=== PATIENT | male | born 1975 | race American Indian/Alaskan Native ===

== ENCOUNTER 2016-05-01 08:37 | Emergency (ER) | payer OTHER ==
[2016-05-01 08:49] VITALS: TEMP 98; BMI 33.5
--- NOTE | 2016-05-01 09:41 | PDOC ---
History of Present Illness - General History Source: Patient Exam Limitations: No Limitations - History of Present Illness Initial Comments: 05/01/16 10:22 The patient is a 40-year-old male with a significant past medical history of kidney stones, HTN, and recurrent urolithiasis, and presents to the emergency department with right groin pain and right flank pain. The patient reports that the right groin and flank pain was severe last night. He reports intermittent abdominal pain. He denies any swelling in the groin region. He states that he has had kidney stones 7 times in the past, and the last episode occurred 4 months ago. The patient denies chest pain, shortness of breath, headache and dizziness. He denies fever, chills, nausea, vomit, diarrhea and constipation. He denies frequency, urgency and hematuria. Allergies: NKDA Social History: No toxic habits reported <Ritika Hall - Last Filed: 05/01/16 10:22> <Edwin Quigley - Last Filed: 05/01/16 11:59> - General Chief Complaint: Pain Stated Complaint: GROIN PAIN Time Seen by Provider: 05/01/16 09:40 Past History <Ritika Hall - Last Filed: 05/01/16 10:22> - Past Medical History Anemia: No Asthma: No Cancer: No Cardiac Disorders: No CVA: No COPD: No CHF: No Dementia: No Diabetes: No GI Disorders: No Disorders: No HTN: Yes Hypercholesterolemia: No Kidney Stones: Yes Liver Disease: No Suicide Attempt (Hx): No Seizures: No Thyroid Disease: No - Surgical History Abdominal Surgery: No Appendectomy: No Cardiac Surgery: No Cholecystectomy: No Lung Surgery: No Neurologic Surgery: No Orthopedic Surgery: No - Immunization History Immunization Up to Date: Yes - Psycho/Social/Smoking Cessation Hx Anxiety: No Suicidal Ideation: No Smoking Status: No Smoking History: Never smoked Have you smoked in the past 12 months: No Number of Cigarettes Smoked Daily: 0 Cigars Per Day: 0 Information on smoking cessation initiated: No 'Breaking Loose' booklet given: 12/04/12 Hx Alcohol Use: No Drug/Substance Use Hx: No Substance Use Type: None Hx Substance Use Treatment: No <Edwin Quigley - Last Filed: 05/01/16 11:59> - Past Medical History Allergies/Adverse Reactions: Allergies Allergy/AdvReac Type Severity Reaction Status Date / Time No Known Drug Allergies Allergy Verified 05/01/16 08:50 Home Medications: Ambulatory Orders Amlodipine Besylate [Norvasc -] 10 mg PO DAILY #30 tablet 11/23/14 Hydrochlorothiazide [Hctz -] 25 mg PO DAILY #30 tablet 11/23/14 Ondansetron [Zofran *Odt*] 8 mg SL TID #30 od.tablet 05/01/16 Oxycodone HCl/Acetaminophen [Percocet 10-325 mg Tablet] 1 each PO QID #20 tablet MDD 4 05/01/16 Review of Systems - Review of Systems Able to Perform ROS?: Yes Comments:: 05/01/16 10:22 GENERAL/CONSTITUTIONAL: No fever or chills. No weakness. HEAD, EYES, EARS, NOSE AND THROAT: No change in vision. No ear pain or discharge. No sore throat. CARDIOVASCULAR: No chest pain or shortness of breath. RESPIRATORY: No cough, wheezing, or hemoptysis. GASTROINTESTINAL: (+) Abdominal pain. No nausea, vomiting, diarrhea or constipation. GENITOURINARY: No frequency or change in urination. MUSCULOSKELETAL: (+) Right groin pain. (+) Right flank pain. No joint or muscle swelling or pain. No neck pain. SKIN: No rash NEUROLOGIC: No headache, vertigo, loss of consciousness, or change in strength/ sensation. ENDOCRINE: No increased thirst. No abnormal weight change. HEMATOLOGIC/LYMPHATIC: No anemia, easy bleeding, or history of blood clots. ALLERGIC/IMMUNOLOGIC: No hives or skin allergy. <Ritika Hall - Last Filed: 05/01/16 10:22> *Physical Exam - Vital Signs Last Vital Signs Temp Pulse Resp BP Pulse Ox 98 F 99 H 18 141/96 99 05/01/16 08:46 05/01/16 08:46 05/01/16 08:46 05/01/16 08:46 05/01/16 08:46 - Physical Exam Comments: 05/01/16 10:22 GENERAL: Awake, alert, and fully oriented, in no acute distress HEAD: No signs of trauma EYES: PERRLA, EOMI, sclera anicteric, conjunctiva clear ENT: Auricles normal inspection, hearing grossly normal, nares patent, oropharynx clear without exudates. Moist mucosa NECK: Normal ROM, supple, no lymphadenopathy, JVD, or masses LUNGS: Breath sounds equal, clear to auscultation bilaterally. No wheezes, and no crackles HEART: Regular rate and rhythm, normal S1 and S2, no murmurs, rubs or gallops ABDOMEN: (+) Right flank tenderness. (+) RLQ tenderness. (+) No peritoneal signs. Soft, normoactive bowel sounds. No guarding, no rebound. No masses EXTREMITIES: Normal range of motion, no edema. No clubbing or cyanosis. No cords, erythema, or tenderness NEUROLOGICAL: Cranial nerves II through XII grossly intact. Normal speech, normal gait SKIN: Warm, Dry, normal turgor, no rashes or lesions noted. <Ritika Hall - Last Filed: 05/01/16 10:22> - Vital Signs Last Vital Signs Temp Pulse Resp BP Pulse Ox 98 F 99 H 18 141/96 99 05/01/16 08:46 05/01/16 08:46 05/01/16 08:46 05/01/16 08:46 05/01/16 08:46 <Edwin Quigley - Last Filed: 05/01/16 11:59> ED Treatment Course - LABORATORY CBC & Chemistry Diagram: 05/01/16 09:52 05/01/16 09:52 - ADDITIONAL ORDERS Additional order review: 05/01/16 09:52 RBC 6.30 H MCV 75.4 L MCHC 31.9 L RDW 14.3 MPV 9.1 Neutrophils % 65.2 D Lymphocytes % 24.0 D Monocytes % 8.1 Eosinophils % 2.3 Basophils % 0.4 - Medications Given in the ED: ED Medications Discontinued Medications Generic Name Dose Route Start Last Admin Trade Name Freq PRN Reason Stop Dose Admin Hydromorphone HCl 2 mg 05/01/16 09:47 05/01/16 10:10 Dilaudid Injection - IVPUSH 05/01/16 09:48 2 mg ONCE ONE Administration Ondansetron HCl 4 mg 05/01/16 09:47 05/01/16 10:10 Zofran Injection IVPUSH 05/01/16 09:48 4 mg ONCE ONE Administration <Ritika Hall - Last Filed: 05/01/16 10:22> - LABORATORY CBC & Chemistry Diagram: 05/01/16 09:52 05/01/16 09:52 <Edwin Quigley - Last Filed: 05/01/16 11:59> *DC/Admit/Observation/Transfer - Attestations Scribe Attestion: 05/01/16 10:23 Documentation prepared by Ritika Hall, acting as medical receptionist biller for Edwin Quigley MD. <Ritika Hall - Last Filed: 05/01/16 10:22> - Discharge Dispostion Admit: No - Attestations Physician Attestion: 05/01/16 09:40 I, Dr. Edwin Quigley, attest that this document has been prepared under my direction and personally reviewed by me in its entirety. I further attest, that it accurately reflects all work, treatment, procedures and medical decision -making performed by me. <Edwin Quigley - Last Filed: 05/01/16 11:59> Diagnosis at time of Disposition: Kidney stone on right side - Discharge Dispostion Disposition: HOME Condition at time of disposition: Good - Prescriptions Prescriptions: Oxycodone HCl/Acetaminophen [Percocet 10-325 mg Tablet] 1 each PO QID #20 tablet MDD 4 Ondansetron [Zofran *Odt*] 8 mg SL TID #30 od.tablet - Patient Instructions Printed Discharge Instructions: DI for Kidney Stones Additional Instructions: Call Dr Crain for follow up - you have a 6mm stone that is non-obstructing. Percocet is for pain. Zofran is for Nausea. Return to us if worse or new symptoms.
[2016-05-01] MEDS ORDERED: HYDROmorphone HCL CARPU-JECT 2 MG/1 ML DISP.SYRIN IVPUSH ONE (09:47)
[2016-05-01] MEDS ORDERED: ONDANSETRON 4 MG/2 ML VIAL IVPUSH ONE (09:47)
[2016-05-01] MEDS ORDERED: SODIUM CHLORIDE 2,000 ML IV STA (09:47)
[2016-05-01 10:05] LABS: BASOPHIL 0.4 % (0-2.0); EOSINOPHIL 2.3 % (0-4.5); MCHC 31.9 g/dl (32.0-35.9); MEAN CELL VOLUME 75.4 fl (80-96); MEAN PLT VOLUME 9.1 fl (7.5-11.1); NEUTROPHILS 65.2 % (42.8-82.8); PLATELET COUNT 186 K/MM3 (134-434); RDW 14.3 % (11.9-15.9); WHITE BLOOD COUNT 5.7 K/mm3 (4.0-10.0)
[2016-05-01] MEDS ORDERED: HYDROmorphone HCL CARPU-JECT 2 MG/1 ML DISP.SYRIN ONE (10:05)
[2016-05-01] MEDS ORDERED: ONDANSETRON 4 MG/2 ML VIAL ONE (10:05)
[2016-05-01 10:28] LABS: URINE APPEARANCE CLEAR; URINE BILIRUBIN NEGATIVE (NEGATIVE); URINE BLOOD NEGATIVE (NEGATIVE); URINE COLOR LTYELLOW; URINE GLUCOSE (UA) NEGATIVE (NEGATIVE); URINE KETONE NEGATIVE (NEGATIVE); URINE LEUK ESTERASE NEGATIVE (NEGATIVE); URINE NITRITE NEGATIVE (NEGATIVE); URINE PROTEIN NEGATIVE (NEGATIVE); URINE UROBILINOGEN NEGATIVE E.U./dl (0.2-1.0)
[2016-05-01 10:32] LABS: ALBUMIN 3.5 g/dl (3.4-5.0); ANION GAP 11 (8-16); BILIRUBIN,TOTAL 0.4 mg/dL (0.2-1.0); CALCIUM 8.9 mg/dL (8.5-10.1); CO2 26 mmol/L (21-32); CREATININE 0.9 mg/dL (0.7-1.3); GLUCOSE,RANDOM 140 mg/dL (74-106); SGPT/ALT 26 U/L (12-78); TOT PROT 7.1 g/dl (6.4-8.2)
[2016-05-01 10:33] LABS: ALK PHOS 70 U/L (45-117)
[2016-05-01 10:41] LABS: SGOT/AST 25 U/L (15-37)
[2016-05-01] MEDS ORDERED: KETOROLAC TROMETHAMINE 30 MG/1 ML VIAL ONE (11:30)
[2016-05-01] MEDS ORDERED: KETOROLAC TROMETHAMINE 30 MG/1 ML VIAL IVPUSH ONE (11:33)
[2016-05-01] MEDS ORDERED: ONDANSETRON *ODT* 4 MG TABLET SL ONE (12:00)
[2016-05-01] MEDS ORDERED: OXYCODONE/APAP 5/325MG COMBO TABLET PO ONE (12:00)
[2016-05-01] MEDS ORDERED: ONDANSETRON 8 MG TABLET (FP) PO ONE (12:20)
[2016-05-01] MEDS ORDERED: OXYCODONE/APAP 5/325MG COMBO TABLET ONE (12:20)
[2016-05-01 12:33] VITALS: BP 147/84; PULSE 89
== END 2016-05-01 12:33 | disposition home or self-care (01) ==
LOC: JER 08:37
PROC: 3E033NZ Introduction of Analgesics, Hypnotics, Sedatives into Peripheral Vein, Percutaneous Approach (ICD-10-PCS; principal; 2016-05-01)
PROC: 3E0333Z Introduction of Anti-inflammatory into Peripheral Vein, Percutaneous Approach (ICD-10-PCS; 2016-05-01)
PROC: 3E033GC Introduction of Other Therapeutic Substance into Peripheral Vein, Percutaneous Approach (ICD-10-PCS; 2016-05-01)
DX: N20.0 Calculus of kidney (principal); Z87.442 Personal history of urinary calculi; I10 Essential (primary) hypertension
CPT/HCPCS: 36415; 76775-TC; 80053; 81003; 85025; 96374; 96375; 99283-25

== ENCOUNTER 2016-07-02 15:40 | Emergency (ER) | payer OTHER ==
[2016-07-02 16:03] VITALS: BMI 34.2
[2016-07-02] MEDS ORDERED: morphine CARPU-JECT 4 MG/1 ML DISP.SYRIN ONE (16:15)
[2016-07-02] MEDS ORDERED: KETOROLAC TROMETHAMINE 30 MG/1 ML VIAL ONE (16:15)
[2016-07-02] MEDS ORDERED: ONDANSETRON 4 MG/2 ML VIAL ONE (16:15)
--- NOTE | 2016-07-02 16:20 | PDOC ---
History of Present Illness - General Chief Complaint: Pain, Acute Stated Complaint: ABD PAIN History Source: Patient Exam Limitations: No Limitations - History of Present Illness Travel History: No Initial Comments: 07/02/16 16:16 40 yo M with h/o renal colic, sp lithotripsy today, here with right sided flank pain. no f/c no n/f no urinary complaints. has had several kidney stones in the past. no mod factors. no new numbness or tingling. Timing/Duration: reports: constant, getting worse Quality: reports: severe Abdominal Pain Onset Location: reports: flank Pain Radiation: reports: no radiation Activities at Onset: reports: none Treatment Prior to Arrive: improves with: analgesics Aggravating Factors: improves with: None Past History - Past Medical History Allergies/Adverse Reactions: Allergies Allergy/AdvReac Type Severity Reaction Status Date / Time No Known Drug Allergies Allergy Verified 07/02/16 19:03 Home Medications: Ambulatory Orders Amlodipine Besylate [Norvasc -] 10 mg PO DAILY #30 tablet 11/23/14 Hydrochlorothiazide [Hctz -] 25 mg PO DAILY #30 tablet 11/23/14 Ondansetron [Zofran *Odt*] 8 mg SL TID #30 od.tablet 05/02/16 Oxycodone HCl/Acetaminophen [Percocet 10-325 mg Tablet] 1 each PO QID #20 tablet MDD 4 05/02/16 Anemia: No Asthma: No Cancer: No Cardiac Disorders: No CVA: No COPD: No CHF: No Dementia: No Diabetes: No GI Disorders: No Disorders: No HTN: Yes Hypercholesterolemia: No Kidney Stones: Yes Liver Disease: No Suicide Attempt (Hx): No Seizures: No Thyroid Disease: No - Surgical History Abdominal Surgery: No Appendectomy: No Cardiac Surgery: No Cholecystectomy: No Lung Surgery: No Neurologic Surgery: No Orthopedic Surgery: No - Immunization History Immunization Up to Date: Yes - Psycho/Social/Smoking Cessation Hx Anxiety: No Suicidal Ideation: No Smoking Status: No Smoking History: Never smoked Have you smoked in the past 12 months: No Number of Cigarettes Smoked Daily: 0 Cigars Per Day: 0 Information on smoking cessation initiated: No 'Breaking Loose' booklet given: 12/04/12 Hx Alcohol Use: No Drug/Substance Use Hx: No Substance Use Type: None Hx Substance Use Treatment: No Review of Systems - Review of Systems Constitutional: No: Chills, Diaphoresis HEENTM: No: Eye Pain, Blurred Vision Respiratory: No: Cough, Orthopnea Cardiac (ROS): No: Chest Pain, Edema ABD/GI: No: Blood Streaked Bowels, Constipated, Poor Appetite : No: Dysuria, Discharge, Frequency Musculoskeletal: Yes: Back Pain Neurological: No: Headache, Numbness All Other Systems: Reviewed and Negative *Physical Exam - Vital Signs Last Vital Signs Temp Pulse Resp BP Pulse Ox 97.8 F 95 H 18 160/114 98 07/02/16 15:57 07/02/16 15:57 07/02/16 15:57 07/02/16 15:57 07/02/16 15:57 - Physical Exam General Appearance: Yes: Nourished. No: Appropriately Dressed, Apparent Distress HEENT: negative: Normal ENT Inspection, Normal Voice Neck: negative: Tender, Trachea midline Respiratory/Chest: positive: Lungs Clear, Normal Breath Sounds. negative: Chest Tender, Respiratory Distress Cardiovascular: positive: Regular Rhythm, Regular Rate. negative: S1, S2, Edema , JVD Gastrointestinal/Abdominal: positive: Normal Bowel Sounds. negative: Tender, Flat Male Genitalia: negative: normal genitalia, normal prostate, discharge Rectal Exam: negative: heme negative stool Lymphatic: negative: Adenopathy, Tenderness Musculoskeletal: positive: CVA Tenderness Extremity: negative: Normal Capillary Refill, Normal Inspection Integumentary: positive: Normal Color, Dry, Warm Neurologic: positive: Fully Oriented, Alert, Normal Mood/Affect. 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 mild CVA tenderness on exam. was given percocet and abx following the procedure. Differential: passing small stones, hydronephrosis, infection, renal failure. plan iv hydration pain control, labs, ua reassess. will d/w dr. Timmy Crain. 07/02/16 18:01 tp yelling in pain after 6 mg morphine, 1 mg dilaudid, toradol and tylneol. has h/o opiate abuse/ tolerance. bedside ultrasound no hydronpephoris bilaterally, bladder empty. *DC/Admit/Observation/Transfer Diagnosis at time of Disposition: Renal colic on right side - Discharge Dispostion Disposition: HOME Condition at time of disposition: Improved Admit: No - Referrals Referrals: Khoa Crain MD [Staff Physician] - - Patient Instructions Printed Discharge Instructions: DI for Extracorporeal Shock Wave Lithotripsy Additional Instructions: follow up with Dr Crain, you should call to schedule, return for fever, or any concerns. you can take percocet as prescribed every 4 - 6 hours for pain. you can also take ibuprofen 400 mg every 8 hours as needed for pain. return for any problems or concerns.
[2016-07-02] MEDS ORDERED: SODIUM CHLORIDE 1,000 ML IV STA (16:24)
[2016-07-02] MEDS ORDERED: morphine CARPU-JECT 2 MG/1 ML DISP.SYRIN ONE (16:35)
[2016-07-02] MEDS ORDERED: morphine CARPU-JECT 2 MG/1 ML DISP.SYRIN IVPUSH ONE (16:35)
[2016-07-02 16:41] LABS: BASOPHIL 0.3 % (0-2.0); EOSINOPHIL 1.1 % (0-4.5); MCH 23.7 pg (25.7-33.7); MCHC 31.9 g/dl (32.0-35.9); MEAN CELL VOLUME 74.4 fl (80-96); MEAN PLT VOLUME 9.7 fl (7.5-11.1); NEUTROPHILS 63.8 % (42.8-82.8); PLATELET COUNT 250 K/MM3 (134-434); RDW 14.6 % (11.9-15.9); WHITE BLOOD COUNT 12.8 K/mm3 (4.0-10.0)
[2016-07-02] MEDS ORDERED: HYDROmorphone HCL CARPU-JECT 1 MG/1 ML DISP.SYRIN ONE (16:55)
[2016-07-02] MEDS ORDERED: KETOROLAC TROMETHAMINE 30 MG/1 ML VIAL IVPUSH ONE (17:12)
[2016-07-02 17:13] LABS: ALBUMIN 4.1 g/dl (3.4-5.0); ALK PHOS 73 U/L (45-117); ANION GAP 12 (8-16); BILIRUBIN,TOTAL 0.3 mg/dL (0.2-1.0); CALCIUM 9.1 mg/dL (8.5-10.1); CO2 24 mmol/L (21-32); COCKROFT - GAULT 127.85; CREATININE 1.2 mg/dL (0.7-1.3); GLUCOSE,RANDOM 131 mg/dL (74-106); SGPT/ALT 26 U/L (12-78); TOT PROT 7.6 g/dl (6.4-8.2)
[2016-07-02] MEDS ORDERED: morphine CARPU-JECT 4 MG/1 ML DISP.SYRIN IVPUSH ONE (17:13)
[2016-07-02] MEDS ORDERED: HYDROmorphone HCL CARPU-JECT 1 MG/1 ML DISP.SYRIN IVPUSH ONE (17:28)
[2016-07-02 17:34] LABS: SGOT/AST 25 U/L (15-37)
[2016-07-02] MEDS ORDERED: ACETAMINOPHEN INJECTION 100 ML IVPB ONE (17:41)
[2016-07-02] MEDS ORDERED: ACETAMINOPHEN 1000 MG/100 ML VIAL (NON FORMULARY) IVPB ONE (17:51)
[2016-07-02] MEDS ORDERED: HYDROmorphone HCL CARPU-JECT 2 MG/1 ML DISP.SYRIN IVPUSH ONE (18:02)
[2016-07-02] MEDS ORDERED: HYDROmorphone HCL CARPU-JECT 2 MG/1 ML DISP.SYRIN ONE (18:15)
[2016-07-02 20:04] LABS: URINE APPEARANCE CLOUDY; URINE BILIRUBIN NEGATIVE (NEGATIVE); URINE COLOR RED; URINE GLUCOSE (UA) 1+ (NEGATIVE); URINE KETONE NEGATIVE (NEGATIVE); URINE LEUK ESTERASE NEGATIVE (NEGATIVE); URINE NITRITE NEGATIVE (NEGATIVE); URINE UROBILINOGEN NEGATIVE E.U./dl (0.2-1.0)
[2016-07-02] MEDS ORDERED: HYDROmorphone HCL 2 MG TABLET PO ONE (20:09)
[2016-07-02] MEDS ORDERED: HYDROmorphone HCL 2 MG TABLET ONE (20:13)
[2016-07-02 20:51] LABS: URINE BLOOD 2+ (NEGATIVE); URINE PROTEIN 2+ (NEGATIVE)
[2016-07-02 22:14] VITALS: BP 132/78; PULSE 102; TEMP 98.6
[2016-07-02 22:19] LABS: URINE MUCUS MANY; URINE RBC 3349 /hpf (0-3); URINE WBC 3 /hpf (3-5)
== END 2016-07-02 22:14 | disposition home or self-care (01) ==
LOC: JER 15:40
PROC: 3E033NZ Introduction of Analgesics, Hypnotics, Sedatives into Peripheral Vein, Percutaneous Approach (ICD-10-PCS; principal; 2016-07-02)
PROC: 3E0333Z Introduction of Anti-inflammatory into Peripheral Vein, Percutaneous Approach (ICD-10-PCS; 2016-07-02)
DX: Z87.442 Personal history of urinary calculi (principal); Z98.890 Other specified postprocedural states; I10 Essential (primary) hypertension
CPT/HCPCS: 36415; 80053; 81003; 81015; 85025; 99284-25

== ENCOUNTER 2016-08-26 12:21 | Day surgery (SDC) | payer OTHER ==
[2016-08-25 16:37] VITALS: BMI 34.2
[2016-08-26] MEDS ORDERED: MIDAZOLAM HCL 2 MG/2 ML SINGLE DOSE VIAL ONE (14:39)
[2016-08-26] MEDS ORDERED: DEXAMETHASONE SOD PHOSPHATE 4 MG/1 ML VIAL ONE (14:48)
[2016-08-26] MEDS ORDERED: PROPOFOL 20 ML ONE (14:49)
[2016-08-26] MEDS ORDERED: LIDOCAINE HCL/PF 2% SDV 5ML VIAL ONE (14:49)
[2016-08-26] MEDS ORDERED: ceFAZolin SODIUM 1 GM VIAL ONE (14:53)
[2016-08-26] MEDS ORDERED: ceFAZolin SODIUM 1 GM VIAL IVPB ONE (14:54)
[2016-08-26] MEDS ORDERED: ACETAMINOPHEN 1000 MG/100 ML VIAL (NON FORMULARY) IVPB PRN (15:36)
[2016-08-26] MEDS ORDERED: ONDANSETRON 4 MG/2 ML VIAL IVPUSH PRN (15:36)
[2016-08-26] MEDS ORDERED: oxyCODONE HCL 5 MG TABLET PO PRN (15:36)
[2016-08-26] MEDS ORDERED: LABETALOL HCL 5 MG/1 ML (100MG/20 ML VIAL) IVPUSH PRN (15:37)
--- NOTE | 2016-08-26 15:38 | OP ---
Operative Note - Note: Operative Date: 08/26/16 Pre-Operative Diagnosis: Right Hydronephrosis Operation: Cysto,retro, right ureteroscopy stone extraction and stent placement Findings: Moderate sized calculus with severe hydro- 3-5mm calculus with obstruction Post-Operative Diagnosis: Other (Right ureteral calculus with hydronephrosis) Surgeon: Anand Bolivar Anesthesia: General Drains & Tubes with Location: 24mm 6 f stent with string placed
[2016-08-26] MEDS ORDERED: LACTATED RINGERS SOLUTION 1,000 ML IV SCH (15:45)
[2016-08-26] MEDS ORDERED: ACETAMINOPHEN INJECTION 100 ML IVPB ONE (16:30)
[2016-08-26 17:57] VITALS: TEMP 98.1
[2016-08-26 18:14] VITALS: BP 131/89; PULSE 77
--- NOTE | 2016-08-28 09:53 | PATH ---
Surgical Pathology Report Patient Name: MITUL VIERA [facility]. Rec. #: [id number] /Age/Gender: 1975 (Age: 40) / M Account: [id number] Location: [facility] SURGICAL Taken: 08/26/2016 Received: 08/27/2016 Reported: 08/28/2016 Physicians: Anand Bolivar M.D. Specimen(s) Received RIGHT RENAL STONE Clinical History Right renal stone Final Diagnosis RIGHT RENAL STONE, EXTRACTION: CALCULI SUBMITTED FOR CHEMICAL ANALYSIS (gross only). Electronically Signed Tushar Gallegos M.D. Gross Description Received fresh labeled "right renal stone," is a 0.7 cm in greatest dimension crowder, irregular calculus which is sent for chemical analysis. /08/27/201608/27/2016
--- NOTE | 2016-08-29 09:44 | OP ---
DATE OF OPERATION: 08/26/2016 SURGEON: Anand Bolivar MD ANESTHESIA: General. PREOPERATIVE DIAGNOSES: 1. Right renal colic. 2. Right hydronephrosis. POSTOPERATIVE DIAGNOSES: 1. Right ureteral calculus. 2. Right hydronephrosis. PROCEDURE: Cystoscopy, right retrograde, ureteroscopy, stone extraction, and stent placement. FINDINGS: Bladder normal. Severe hydronephrosis of the right collecting system noted. The right ureter showed massive hydronephrosis with an area of narrowing with a 3-5 mm calculus producing obstruction. DESCRIPTION OF PROCEDURE: Patient, in lithotomy position under anesthesia, was prepped and draped in the usual manner. Using a 22 scope, cystoscopy performed, and a guidewire was placed in the right collecting system. An ureteroscope was used. Right ureteroscopy performed, and contrast was injected which showed massive hydronephrosis. Then, the kidney was flushed with massive amount of fluid for irrigation, and a calculus was noted which was removed using a stone basket. Then, a stent was placed, confirmed with the x-ray. Patient tolerated the procedure well, left the operating room in a satisfactory condition. Rubi [id number]
== END 2016-08-26 18:15 | disposition home or self-care (01) ==
LOC: JASU-SURG 12:21
PROVIDERS: ATTEND Urology
PROC: 0T768DZ Dilation of Right Ureter with Intraluminal Device, Via Natural or Artificial Opening Endoscopic (ICD-10-PCS; 2016-08-26)
PROC: 0T7D8DZ Dilation of Urethra with Intraluminal Device, Via Natural or Artificial Opening Endoscopic (ICD-10-PCS; principal; 2016-08-26 14:00)
PROC: 0TC68ZZ Extirpation of Matter from Right Ureter, Via Natural or Artificial Opening Endoscopic (ICD-10-PCS; 2016-08-26 14:00)
DX: N13.2 Hydronephrosis with renal and ureteral calculous obstruction (principal)
CPT/HCPCS: 36415; 76000-TC; 82360; 88300-TC; 94760

== ENCOUNTER 2017-02-20 11:13 | Emergency (ER) | payer OTHER ==
[2017-02-20 11:29] VITALS: BMI 33.5
--- NOTE | 2017-02-20 12:10 | PDOC ---
History of Present Illness - General Chief Complaint: Pain, Acute Stated Complaint: PAIN Time Seen by Provider: 02/20/17 11:48 - History of Present Illness Initial Comments: 02/20/17 12:37 The patient is a 41 year old male with a history of HTN, renal colic, opoid dependence. kidney stones who presents for evaluation of sore throat and right flank pain. The patient reports a 2 week history of right flank pain with radiation into his RLQ that has been unresponsive to his the percocet and ibuprofen that he normally takes for his renal colic. He also reports some sore throat over the past 4 days with associated diarrhea. Otherwise, he denies fevers, chills, SOB, chest pain, abdominal pain. Past History - Past Medical History Allergies/Adverse Reactions: Allergies Allergy/AdvReac Type Severity Reaction Status Date / Time No Known Drug Allergies Allergy Verified 02/20/17 11:28 Home Medications: Ambulatory Orders Amlodipine Besylate [Norvasc -] 10 mg PO DAILY #30 tablet 11/23/14 Hydrochlorothiazide [Hctz -] 25 mg PO DAILY #30 tablet 11/23/14 Levofloxacin [Levaquin -] 500 mg PO DAILY #7 tablet 08/26/16 Ibuprofen 600 mg PO Q6H PRN #14 tablet 02/20/17 Anemia: No Asthma: No Cancer: No Cardiac Disorders: No CVA: No COPD: No CHF: No Dementia: No Diabetes: No GI Disorders: No Disorders: No HTN: Yes Hypercholesterolemia: No Kidney Stones: Yes Liver Disease: No Seizures: No Thyroid Disease: No - Surgical History Abdominal Surgery: No Appendectomy: No Cardiac Surgery: No Cholecystectomy: No Lung Surgery: No Neurologic Surgery: No Orthopedic Surgery: No - Immunization History Immunization Up to Date: Yes - Suicide/Smoking/Psychosocial Hx Smoking Status: No Smoking History: Never smoked Have you smoked in the past 12 months: No Number of Cigarettes Smoked Daily: 0 Cigars Per Day: 0 'Breaking Loose' booklet given: 12/04/12 Hx Alcohol Use: No Drug/Substance Use Hx: No Substance Use Type: None Hx Substance Use Treatment: No Review of Systems - Review of Systems Comments:: 02/20/17 12:44 Constitutional: No fevers, chills, fatigue, malaise HEENT: Sore Throat. No Rhinorrhea, nasal congestion, visual changes Cardiovascular: No chest pain, syncope, palpitations, lightheadedness Respiratory: No Cough, SOB, Hemoptysis, Gastrointestinal: Diarrhea, nausea. No Abdominal pain, Vomiting, Constipation, Melena Genitourinary: Flank pain. No Dysuria, Frequency, Urgency, Hesitancy, Hematuria Musculoskeletal: No Myalgia, arthralgia Skin: No rashes, itching, bruising, pallor Neurologic: No Headache, Dizziness, Numbness, Weakness, or Tingling Psychiatric: No Hallucinations. No SI or HI *Physical Exam - Vital Signs Last Vital Signs Temp Pulse Resp BP Pulse Ox 97.7 F 89 18 152/108 97 02/20/17 11:25 02/20/17 11:25 02/20/17 11:25 02/20/17 11:25 02/20/17 11:25 - Physical Exam Comments: 02/20/17 12:45 General Appearance: Nourished. No Apparent Distress HEENT: EOMI, RASHID. Mild Pharyngeal Erythema No Tonsillar Exudate, Tonsillar Erythema Neck: No Cervical Lymphadenopathy Respiratory/Chest: Lungs Clear, Normal Breath Sounds. No Crackles, Rales, Rhonchi, Wheezing Cardiovascular: Regular Rhythm, Regular Rate. No Murmur, Gallops, Rubs Gastrointestinal/Abdominal: Normal Bowel Sounds, Soft. No Guarding, Rebound, Tenderness Musculoskeletal: No CVA Tenderness Extremity: Normal Capillary Refill Integumentary: Normal Color, Dry, Warm Neurologic: Fully Oriented, Alert, Normal Mood/Affect, Normal Response, ED Treatment Course - LABORATORY CBC & Chemistry Diagram: 02/20/17 12:40 02/20/17 12:40 Medical Decision Making - Medical Decision Making 02/20/17 12:46 The patient is a 41 year old male with a history of HTN, renal colic, opoid dependence. kidney stones who presents for evaluation of sore throat and right flank pain. Given the patient's similar symptoms to his previous kidney stones , it is likely his pain is due to another kidney stone. However given his history of requiring lithotrypsy, we will obtain a ct scan to evaluate further in addition to a cbc, cmp, ua. We will continue to monitor and reassess. 02/20/17 15:23 cbc, cmp, ua are unremarkable. ct scan does not demonstrate any kidney stones as read by our radiologist. The patient continues to request more pain medication and was informed that the best option for him was ibuprofen and heating packs as his pain was likely musculoskeletal in nature. We are comfortable discharging the patient home at this time with primary care provider follow up. We discussed the results and the plan with the patient who voiced understanding and is agreeable with the plan. *DC/Admit/Observation/Transfer Diagnosis at time of Disposition: Right flank pain, Sore throat (viral) - Discharge Dispostion Disposition: HOME Condition at time of disposition: Improved Admit: No - Prescriptions Prescriptions: Ibuprofen 600 mg PO Q6H PRN #14 tablet PRN Reason: Pain - Referrals Referrals: Nya Arevalo MD [Primary Care Provider] - Khoa Crain MD [Staff Physician] - - Patient Instructions Printed Discharge Instructions: DI for Musculoskeletal Pain Additional Instructions: Please return to the ER if you experience concerning or worsening symptoms including worsening fevers, chills, chest pain, or difficulty breathing. Your lab results and ct scan were normal here in the ER. Your pain is likely due to muscle strain. You may use ibuprofen or heat packs to help relieve your symptoms. It is important that you follow up with your primary care provider within 2-3 days to discuss further management of your symptoms. - Post Discharge Activity
[2017-02-20] MEDS ORDERED: SODIUM CHLORIDE 1,000 ML IV STA (12:31)
[2017-02-20] MEDS ORDERED: KETOROLAC TROMETHAMINE 30 MG/1 ML VIAL IVPUSH ONE (12:31)
[2017-02-20] MEDS ORDERED: KETOROLAC TROMETHAMINE 30 MG/1 ML VIAL ONE (12:44)
[2017-02-20 13:39] LABS: BASO % 0.5 % (0-2.0); EOS % 2.4 % (0-4.5); HEMATOCRIT 51.8 % (35.4-49); HEMOGLOBIN 16.6 GM/dL (11.7-16.9); LYMPH % 28.8 % (8-40); MCH 23.6 pg (25.7-33.7); MEAN CELL VOLUME 73.8 fl (80-96); MEAN PLT VOLUME 9.2 fl (7.5-11.1); MONO % 9.6 % (3.8-10.2); NEUT % 58.7 % (42.8-82.8); PLATELET COUNT 229 K/MM3 (134-434); RDW 15.6 % (11.9-15.9); WHITE BLOOD COUNT 9.7 K/mm3 (4.0-10.0)
[2017-02-20 13:42] LABS: RBC 7.02 M/mm3 (4.00-5.60)
[2017-02-20 13:42] LABS: URINE APPEARANCE CLEAR; URINE BILIRUBIN NEGATIVE (NEGATIVE); URINE BLOOD NEGATIVE (NEGATIVE); URINE COLOR LTYELLOW; URINE GLUCOSE (UA) NEGATIVE (NEGATIVE); URINE KETONE NEGATIVE (NEGATIVE); URINE LEUK ESTERASE NEGATIVE (NEGATIVE); URINE NITRITE NEGATIVE (NEGATIVE); URINE PROTEIN NEGATIVE (NEGATIVE); URINE UROBILINOGEN NEGATIVE mg/dL (0.2-1.0)
[2017-02-20 14:06] LABS: ALBUMIN 4.1 g/dl (3.4-5.0); ANION GAP 12 (8-16); BLOOD UREA NITROGEN 14 mg/dL (7-18); CALCIUM 9.5 mg/dL (8.5-10.1); CHLORIDE 102 mmol/L (98-107); CO2 24 mmol/L (21-32); CREATININE 0.7 mg/dL (0.7-1.3); GLUCOSE,RANDOM 78 mg/dL (74-106); SGPT/ALT 26 U/L (12-78); SODIUM 138 mmol/L (136-145)
[2017-02-20 14:08] LABS: ALK PHOS 77 U/L (45-117); BILIRUBIN,TOTAL 0.4 mg/dL (0.2-1.0)
[2017-02-20 14:09] LABS: POTASSIUM 4.1 mmol/L (3.5-5.1); SGOT/AST 28 U/L (15-37)
--- NOTE | 2017-02-20 15:19 | PDOC ---
Attending Attestation - Resident Resident Name: Ozzy Rivera - ED Attending Attestation I have performed the following: I have examined & evaluated the patient, The case was reviewed & discussed with the resident, I agree w/resident's findings & plan, Exceptions are as noted - HPI HPI: 02/20/17 15:17 The patient is a 41 year old male with history of renal colic, multiple stones, who presents to the ED complaining of approximately 2 weeks of right flank pain that radiates to his right lower quadrant pain. He describes his pain as sharp, intermittent, and consistent with previous stones. He also reports associated hematuria. He states he has been taking Percocets for pain but is requesting additional pain medication, saying that his current medications are not relieving his current pain. He also complains of 4 days of sore throat. No fever or chills. No endorses nausea and mild diarrhea, no vomiting. - Physicial Exam PE: 02/20/17 15:17 "GENERAL: Awake, alert, and fully oriented, in no acute distress HEAD: No signs of trauma EYES: PERRLA, EOMI, sclera anicteric, conjunctiva clear ENT: Auricles normal inspection, hearing grossly normal, nares patent, oropharynx clear without exudates. Moist mucosa NECK: Nontender, no stepoffs, Normal ROM, supple, no lymphadenopathy, JVD, or masses LUNGS: Breath sounds equal, clear to auscultation bilaterally. No wheezes, and no crackles HEART: Regular rate and rhythm, normal S1 and S2, no murmurs, rubs or gallops ABDOMEN: Soft, nontender, normoactive bowel sounds. No guarding, no rebound. No masses : no scrotal masses or tenderness, normal lay, + mild R CVAT EXTREMITIES: Normal range of motion, no edema. No clubbing or cyanosis. No cords, erythema, or tenderness NEUROLOGICAL: Cranial nerves II through XII intact. 5/5 strength and sensation in all extremities, Normal speech, normal gait SKIN: Warm, Dry, normal turgor, no rashes or lesions noted. " - Medical Decision Making 02/20/17 15:18 41 M with h/o kidney stones presenting to ER with R flank pain x 2 weeks. Possible nephrolithiasis. Given duration of symptoms, will obtain CT to r/o large obstructing stone. Pt also with sore throat but is afebrile and well appearing. WIll r/o strep with throat culture. - Labs, UA - CT non-con - Pain control 02/20/17 15:26 CT with no evidence of stone. UA completely negative, no blood. Rapid strep negative. Pt well appearing, vitals normal, stable for DC.
[2017-02-20 16:22] VITALS: BP 122/77; PULSE 88; TEMP 98.6
== END 2017-02-20 15:40 | disposition home or self-care (01) ==
LOC: JER 11:13
PROC: 3E0333Z Introduction of Anti-inflammatory into Peripheral Vein, Percutaneous Approach (ICD-10-PCS; principal; 2017-02-20)
DX: R10.30 Lower abdominal pain, unspecified (principal); R07.0 Pain in throat; I10 Essential (primary) hypertension; F11.20 Opioid dependence, uncomplicated; Z87.442 Personal history of urinary calculi
CPT/HCPCS: 36415; 74176; 80053; 81003; 85025; 87070; 87430; 96374; 99284-25

== ENCOUNTER 2017-12-20 17:30 | Emergency (ER) | payer OTHER ==
[2017-12-20 17:41] VITALS: BMI 33.5
[2017-12-20] MEDS ORDERED: RANITIDINE HCL 150 MG TABLET (FP) PO ONE (17:42)
--- NOTE | 2017-12-20 17:42 | PDOC ---
Rapid Medical Evaluation Chief Complaint: Nausea/Vomiting Time Seen by Provider: 12/20/17 17:37 Medical Evaluation: Allergies Allergy/AdvReac Type Severity Reaction Status Date / Time No Known Drug Allergies Allergy Verified 02/20/17 11:28 12/20/17 17:37 I have performed a brief in-person evaluation of this patient. The patient presents with a chief complaint of: 2 days of cough with regurg / reflux, also difficulty swallowing , and heartburn. No meds// unable to see pmd / SPECIALIST AVAIL IN 2MOS. Unable to sleep past few days for same. Pertinent physical exam findings: pale, abd soft with some tenderness mid epigastrum. Lungs CTA I have ordered the following: cxr, zANTAC 150MG, EKG The patient will proceed to the ED for further evaluation 12/20/17 17:39 12/20/17 17:44
[2017-12-20] MEDS ORDERED: RANITIDINE HCL 150 MG TABLET (FP) ONE (19:03)
[2017-12-20] MEDS ORDERED: NITROGLYCERIN SUBLINGUAL 1/150 0.4 MG TAB SL ONE (19:10)
[2017-12-20] MEDS ORDERED: ASPIRIN 325 MG TABLET PO ONE (19:11)
[2017-12-20] MEDS ORDERED: NITROGLYCERIN SUBLINGUAL 1/150 0.4 MG TAB ONE (19:13)
[2017-12-20] MEDS ORDERED: ASPIRIN 325 MG TABLET ONE (19:13)
--- NOTE | 2017-12-20 19:14 | PDOC ---
History of Present Illness - General Chief Complaint: Nausea/Vomiting Stated Complaint: Shortness of Breath Time Seen by Provider: 12/20/17 17:37 - History of Present Illness Initial Comments: 42-year-old male with 5 days of chest pain left shoulder pain and jaw pain without any precipitating traumatic event. He states his pain is worse at night at the above-mentioned radiation he feels this pain is a sharp pain sometimes also with a stabbing pressure 12/20/17 19:12 Past History - Past Medical History Allergies/Adverse Reactions: Allergies Allergy/AdvReac Type Severity Reaction Status Date / Time No Known Drug Allergies Allergy Verified 12/20/17 17:38 Home Medications: Ambulatory Orders Amlodipine Besylate [Norvasc -] 10 mg PO DAILY #30 tablet 11/23/14 Hydrochlorothiazide [Hctz -] 25 mg PO DAILY #30 tablet 11/23/14 Ibuprofen 600 mg PO Q6H PRN #14 tablet 02/20/17 Anemia: No Asthma: No Cancer: No Cardiac Disorders: No CVA: No COPD: No CHF: No Dementia: No Diabetes: No GI Disorders: No Disorders: No HTN: Yes Hypercholesterolemia: No Kidney Stones: Yes Liver Disease: No Seizures: No Thyroid Disease: No - Surgical History Abdominal Surgery: No Appendectomy: No Cardiac Surgery: No Cholecystectomy: No Lung Surgery: No Neurologic Surgery: No Orthopedic Surgery: No - Immunization History Immunization Up to Date: Yes - Suicide/Smoking/Psychosocial Hx Smoking Status: No Smoking History: Never smoked Have you smoked in the past 12 months: No Number of Cigarettes Smoked Daily: 0 Cigars Per Day: 0 'Breaking Loose' booklet given: 12/04/12 Hx Alcohol Use: No Drug/Substance Use Hx: No Substance Use Type: None Hx Substance Use Treatment: No Review of Systems - Review of Systems Respiratory: Yes: Cough, Shortness of Breath Cardiac (ROS): Yes: Chest Pain, Chest Tightness *Physical Exam - Vital Signs Last Vital Signs Temp Pulse Resp BP Pulse Ox 98.2 F 79 18 153/99 98 12/20/17 17:40 12/20/17 18:56 12/20/17 18:56 12/20/17 19:02 12/20/17 18:56 - Physical Exam Comments: 12/20/17 19:13 HEAD: NC/AT EYES: Conjuntiva clear CARDIAC: S1 S2 LUNGS: CTA Full and Equal breath sounds ABDOMEN: Soft NT ND MS: Full ROM in all joints without edema NEUROLOGIC: No gross sensory or motor deficits, NVID SKIN: Normal color and temperature no lesions or rashes ED Treatment Course - Medications Given in the ED: ED Medications Discontinued Medications Generic Name Dose Route Start Last Admin Trade Name Freq PRN Reason Stop Dose Admin Ranitidine HCl 150 mg 12/20/17 17:42 12/20/17 19:04 Zantac - PO 12/20/17 17:43 150 mg ONCE ONE Administration Medical Decision Making - Medical Decision Making 12/20/17 19:13 Chest x-ray is normal I will transfer this patient to the main emergency room he is having active chest pain I've ordered nitroglycerin and aspirin at this point at work. *DC/Admit/Observation/Transfer Diagnosis at time of Disposition: Chest pain - Referrals Referrals: Nya Arevalo MD [Primary Care Provider] - - Patient Instructions - Post Discharge Activity
[2017-12-20 19:52] LABS: BASO % 0.8 % (0-2.0); EOS % 2.1 % (0-4.5); HEMOGLOBIN 18.1 GM/dL (11.7-16.9); LYMPH % 27.7 % (8-40); MCH 24.4 pg (25.7-33.7); MCHC 32.9 g/dl (32.0-35.9); MEAN CELL VOLUME 74.2 fl (80-96); MEAN PLT VOLUME 8.7 fl (7.5-11.1); MONO % 10.1 % (3.8-10.2); NEUT % 59.3 % (42.8-82.8); PLATELET COUNT 270 K/MM3 (134-434); RDW 15.8 % (11.9-15.9); WHITE BLOOD COUNT 10.9 K/mm3 (4.0-10.0)
[2017-12-20 19:54] LABS: RBC 7.41 M/mm3 (4.00-5.60)
[2017-12-20 20:35] LABS: ALBUMIN 3.7 g/dl (3.4-5.0); ALK PHOS 76 U/L (45-117); ANION GAP 12 MMOL/L (8-16); BILIRUBIN,TOTAL 0.3 mg/dL (0.2-1); BLOOD UREA NITROGEN 16 mg/dL (7-18); CALCIUM 9.1 mg/dL (8.5-10.1); CHLORIDE 100 mmol/L (98-107); CO2 25 mmol/L (21-32); CREATININE 0.9 mg/dL (0.55-1.3); GLUCOSE,RANDOM 123 mg/dL (74-106); POTASSIUM 3.3 mmol/L (3.5-5.1); SGOT/AST 12 U/L (15-37); SGPT/ALT 23 U/L (13-61); SODIUM 138 mmol/L (136-145); TOT PROT 7.7 g/dl (6.4-8.2)
[2017-12-20 20:36] LABS: INR 1.03 (0.83-1.09); PROTHROMBIN TIME (PATIENT) 12.1 SEC (9.7-13.0)
[2017-12-20] MEDS ORDERED: SODIUM CHLORIDE 0.9% 500 ML INFUS.BAG IV ONE (20:48)
--- NOTE | 2017-12-20 20:48 | PDOC ---
History of Present Illness - General Chief Complaint: Nausea/Vomiting Stated Complaint: Shortness of Breath Time Seen by Provider: 12/20/17 17:37 - History of Present Illness Initial Comments: Kathleen Fuentes is a 42yo man with a PMH of HTN, recurrent kidney stones requiring multiple lithotripsies and stents, and reporting frequent heartburn who presents complaining of cough and sternal chest pain that has worsened over the past few days. He reports that he feels more or less OK during the day, but when he tries to lay down at night he gets terrible mid-sternal chest pain and cough that prevents him from sleeping. He also coughs to the point of gagging and occasionally vomiting. He has had heartburn in the past, but he has never had such severe symptoms. He also notes having an EGD about 10 years ago, but he never followed up after the scope and does not know what was found. Mr Fuentes also notes nasal congestion and post-nasal drip for the past few weeks. He denies any fevers, chills, abdominal pain, or change in bowel habits. He has never had any abdominal surgery other than the kidney stents. He does endorse shortness of breath but explains that it is related to the coughing when he lays down. Mr Fuentes has been able to eat normally and without any issues. He denies smoking or drinking alcohol or carbonated beverages. He has never taken any medication for his reflux, cough, or congestion. Past History - Past Medical History Allergies/Adverse Reactions: Allergies Allergy/AdvReac Type Severity Reaction Status Date / Time No Known Drug Allergies Allergy Verified 12/20/17 17:38 Home Medications: Ambulatory Orders Amlodipine Besylate [Norvasc -] 10 mg PO DAILY #30 tablet 11/23/14 Hydrochlorothiazide [Hctz -] 25 mg PO DAILY #30 tablet 11/23/14 Ibuprofen 600 mg PO Q6H PRN #14 tablet 02/20/17 Fluticasone Prop 0.05% Nasal [Flonase -] 1 - 2 spray NS BID #1 spray.pump Omeprazole 20 mg PO DAILY 30 Days #30 tablet. 12/20/17 Anemia: No Asthma: No Cancer: No Cardiac Disorders: No CVA: No COPD: No CHF: No Dementia: No Diabetes: No GI Disorders: No Disorders: No HTN: Yes Hypercholesterolemia: No Kidney Stones: Yes Liver Disease: No Seizures: No Thyroid Disease: No - Surgical History Abdominal Surgery: No Appendectomy: No Cardiac Surgery: No Cholecystectomy: No Lung Surgery: No Neurologic Surgery: No Orthopedic Surgery: No - Immunization History Immunization Up to Date: Yes - Suicide/Smoking/Psychosocial Hx Smoking Status: No Smoking History: Never smoked Have you smoked in the past 12 months: No Number of Cigarettes Smoked Daily: 0 Cigars Per Day: 0 'Breaking Loose' booklet given: 12/04/12 Hx Alcohol Use: No Drug/Substance Use Hx: No Substance Use Type: None Hx Substance Use Treatment: No Review of Systems - Review of Systems Comments:: General: No fevers, no chills, no weight or appetite change, no malaise HEENT: No changes in vision, no changes in hearing, +Nasal congestion, +sore throat CV: +Midsternal pain. No palpitations, no LE edema Pulm: No SOB, no wheezing. +Cough GI: See HPI. : No frequency, no urgency, no dysuria. h/o recurrent stones Musc: No back pain, no joint swelling, no recent injury Skin: No rash, no lesions, no erythema Endo: No excessive thirst, no heat/cold intolerance Heme: No unusual bruising or bleeding, no swollen glands Neuro: No syncope, no numbness/tingling, no focal weakness Vasc: No claudication Psych: No recent change in mood, no SI or HI *Physical Exam - Vital Signs Last Vital Signs Temp Pulse Resp BP Pulse Ox 98.2 F 79 18 153/99 98 12/20/17 17:40 12/20/17 18:56 12/20/17 18:56 12/20/17 19:02 12/20/17 18:56 - Physical Exam Comments: General: Comfortable, no acute distress HEENT: PERRL, EOMI, MMM, voice normal, normal neck ROM, no LAD Cards: RRR, no murmur appreciated Pulm: Comfortable on room air, clear to auscultation bilaterally Abd: Soft, nontender, nondistended : No CVA tenderness Ext: Atraumatic. No LE edema. ROM intact. Strength 5/5 and equal bilaterally Vasc: Extremities WWP. Palpable radial and pedal pulses bilaterally Skin: Normal color, no rashes or lesions Neuro: A&Ox3, CN grossly intact, normal speech, motor/sensory grossly intact and symmetric Psych: Mood appropriate to situation ED Treatment Course - LABORATORY CBC & Chemistry Diagram: 12/20/17 19:30 12/20/17 19:30 - ADDITIONAL ORDERS Additional order review: Laboratory Results 12/20/17 12/20/17 19:30 19:30 PT with INR 12.10 INR 1.03 Sodium 138 Potassium 3.3 L Chloride 100 Carbon Dioxide 25 Anion Gap 12 BUN 16 Creatinine 0.9 Creat Clearance w eGFR > 60 Random Glucose 123 H Calcium 9.1 Total Bilirubin 0.3 AST 12 L ALT 23 Alkaline Phosphatase 76 Troponin I < 0.02 Total Protein 7.7 Albumin 3.7 12/20/17 19:30 RBC 7.41 H MCV 74.2 L MCHC 32.9 RDW 15.8 MPV 8.7 Neutrophils % 59.3 Lymphocytes % 27.7 Monocytes % 10.1 Eosinophils % 2.1 Basophils % 0.8 - Medications Given in the ED: ED Medications Discontinued Medications Generic Name Dose Route Start Last Admin Trade Name Freq PRN Reason Stop Dose Admin Aspirin 325 mg 12/20/17 19:11 12/20/17 19:15 Asa - PO 12/20/17 19:12 325 mg ONCE ONE Administration Nitroglycerin 0.4 mg 12/20/17 19:10 12/20/17 19:15 Nitrostat - SL 12/20/17 19:11 0.4 mg ONCE ONE Administration Ranitidine HCl 150 mg 12/20/17 17:42 12/20/17 19:04 Zantac - PO 12/20/17 17:43 150 mg ONCE ONE Administration Medical Decision Making - Medical Decision Making 12/20/17 20:44 Kathleen Fuentes is a 42yo man with a PMH of HTN and recurrent kidney stones who presents with sternal and epigastric pain along with coughing/gagging/vomiting that has worsened over the past several days. He reports a history of frequent acid reflux but states the current symptoms are much worse than he has ever had in the past. - Reports having multiple loose BM daily for many years, no change from usual, and has no difficulty tolerating PO intake. No h/o abdominal surgery aside from kidney stones. Low suspicion for obstruction or partial bowel obstruction. - Abdominal exam benign, low suspicion for acute - CXR and EKG completed prior to arrival in main ED. - CXR without any acute pathology - EKG with NSR, left axis deviation, normal intervals, no ST elevations or depressions - Labs reviewed. Hgb elevated to 18, WBC 11, hypokalemic to 3.3. Otherwise unremarkable - 1L NS with K+ for suspected dehydration - Maalox and viscous lidocaine for pain. Protonix IV for reflux. - Endorses congestion and post-nasal drip. May be the cause of the cough or secondary to increased reflux at night. 12/20/17 23:42 - Feels significantly improve after medications and fluid bolus - Discussed home care, use of flonase, neti-pot, antihistamine, omeprazole. Recommend PRN antacid (e.g. maalox) as well. - Discussed follow up and return precautions in detail. Mr Fuentes and his state understanding and agreement. - Per patient request, will give PO diphenhydramine prior to discharge as they have no allergy medications available at home, and Mr Fuentes is concerned his symptoms will return. Discussed with Dr Lloyd. Janelle Saravia PGY1 12/21/17 04:30 *DC/Admit/Observation/Transfer Diagnosis at time of Disposition: Chest pain - Discharge Dispostion Disposition: HOME Condition at time of disposition: Stable Decision to Admit order: No - Prescriptions Prescriptions: Fluticasone Prop 0.05% Nasal [Flonase -] 1 - 2 spray NS BID #1 spray.pump Omeprazole 20 mg PO DAILY 30 Days #30 tablet.dr - Referrals Referrals: Nya Arevalo MD [Primary Care Provider] - Jose Alejandro Ramos MD [Staff Physician] - Percy Chaudhry MD [Staff Physician] - - Patient Instructions Printed Discharge Instructions: DI for Gastroesophageal Reflux Disease (GERD), GERD Diet Additional Instructions: Discharge Instructions: - You were seen in the ED for chest pain, cough, and acid reflux. - A chest xray and EKG were both normal. Your blood tests showed that you were probably slightly dehydrated, so you were given IV fluids for rehydration. - You also received a potassium supplement because your potassium levels were low. - You were given several medications for your pain and acid reflux. - You were also noted to have nasal congestion and post-nasal drip. This may be the cause of your cough. You may also have the congestion and post-nasal drip because of acid reflux when you lay flat to sleep at night. - For the reflux and post-nasal drip, you have been prescribed omeprazole (an acid cobbler sole) as well as Flonase (a nasal steroid spray). You may also benefit from an antihistamine such as Claritin or Zyrtec. These are available over the counter at any pharmacy. - Take the omeprazole daily. You may also buy an over the counter medication such as Maalox to be used as needed for continued heartburn - Use the Flonase daily as well. Two sprays per nostril daily. OR if you prefer, you may use one spray per nostril in the morning and at night (twice daily) - It may also help to use a Neti pot daily to help keep your nose and sinuses from becoming dry and to rinse away any allergens. - You have been referred to Dr Ramos for your congestion and post-nasal drip. Make an appointment to see him within the next week - You have been referred to Dr Chaudhry for your acid reflux. Make an appointment to see him within the next week. - Seek immediate medical care if you have severe chest pain along with shortness of breath, nausea, vomiting, and lightheadedness OR if you have continued, persistent vomiting that does not allow you to eat. - Post Discharge Activity
[2017-12-20] MEDS ORDERED: LIDOCAINE VISCOUS 2% ORAL/TOP 20 ML UNIT-DOSE CUP MM ONE (20:50)
[2017-12-20] MEDS ORDERED: MAG HYDROX/AL HYDROX/SIMETH 30 ML UNIT-DOSE CUP PO ONE (20:50)
[2017-12-20] MEDS ORDERED: LIDOCAINE VISCOUS 2% ORAL/TOP 20 ML UNIT-DOSE CUP ONE (21:00)
[2017-12-20] MEDS ORDERED: KCL 10 MEQ IVPB 20 MEQ/200 ML INFUS.BAG IVPB ONE (21:00)
[2017-12-20] MEDS ORDERED: MAG HYDROX/AL HYDROX/SIMETH 30 ML UNIT-DOSE CUP ONE (21:00)
[2017-12-20] MEDS ORDERED: PANTOPRAZOLE SODIUM 40 MG VIAL IVPUSH ONE (21:20)
[2017-12-20] MEDS: KCL 10 MEQ IVPB 10 MEQ/100 ML INFUS.BAG IVPB SCH ×2 (21:37→22:43)
--- NOTE | 2017-12-20 21:51 | PDOC ---
Attending Attestation - Resident Resident Name: ManjitJanelle - ED Attending Attestation I have performed the following: I have examined & evaluated the patient, The case was reviewed & discussed with the resident, I agree w/resident's findings & plan, Exceptions are as noted - HPI HPI: 12/20/17 21:49 this 42 yo ma;le has been unable to sleep because opf nocturnal cough and also GERD -his PCP referred him to GI and ENT but the appt is not until next year and they are requesting a different referral - Physicial Exam PE: 12/20/17 21:51 pe WNWD 42 YO MALE W NASAL CONGESTION.,COUGH AND EPIGASTRIC BURNING head ncat eyes [place] eomi +nasal congestion neck supple lungs cta b/l cvs [id number] abd nontender,no rebound,no guarding ext no edema skin warm and dry neuro axox3,ambulatory,motor strength 5/5 b/l wnwd 42 yo male with nasal congestion and cough and GERD labd reviewed cxr napd diff diagnosis : gerd,post nasal drip w resultant cough,r/o pneumonia.atypical chest pain 12/21/17 00:03 - Medical Decision Making 12/21/17 00:07 labs reviewed and essentially unremarkable pt received PPIs IMP GERD,post nasal drip w resultant cough pt referred to ENT 12/21/17 00:08
[2017-12-20] MEDS ORDERED: PANTOPRAZOLE SODIUM 40 MG VIAL ONE (22:38)
[2017-12-20] MEDS ORDERED: diphenhydrAMINE HCL 50 MG CAPSULE PO ONE (23:42)
[2017-12-20] MEDS ORDERED: diphenhydrAMINE HCL 25 MG CAPSULE (FP) PO ONE (23:55)
[2017-12-21 00:05] VITALS: BP 146/78; PULSE 89; TEMP 98.6
--- NOTE | 2017-12-21 12:09 | EKG ---
Test Reason : Blood Pressure : / mmHG Vent. Rate : 094 BPM Atrial Rate : 094 BPM P-R Int : 154 ms QRS Dur : 090 ms QT Int : 328 ms P-R-T Axes : 061 -38 042 degrees QTc Int : 410 ms NORMAL SINUS RHYTHM LEFT AXIS DEVIATION NONSPECIFIC T WAVE ABNORMALITY ABNORMAL ECG Confirmed by MD ACREN, RICHIE ([id number]) on 12/21/2017 12:08:49 PM Referred By: Confirmed By:RICHIE FABIAN MD
== END 2017-12-21 00:04 | disposition home or self-care (01) ==
LOC: JER 17:30
PROC: 3E033GC Introduction of Other Therapeutic Substance into Peripheral Vein, Percutaneous Approach (ICD-10-PCS; principal; 2017-12-20)
PROC: 3E033GC Introduction of Other Therapeutic Substance into Peripheral Vein, Percutaneous Approach (ICD-10-PCS; 2017-12-20)
DX: R07.9 Chest pain, unspecified (principal); R10.13 Epigastric pain; I10 Essential (primary) hypertension; Z87.442 Personal history of urinary calculi; E87.6 Hypokalemia
CPT/HCPCS: 36415; 71046-TC-FY; 80053; 84484; 85025; 85610; 93005; 93010; 96365; 96366; 96375; 99282-25

== ENCOUNTER 2018-01-10 05:24 | Emergency (ER) | payer OTHER ==
[2018-01-10] MEDS ORDERED: SODIUM CHLORIDE 1,000 ML IV STA (05:33)
[2018-01-10 05:47] LABS: BASO % 0.6 % (0-2.0); EOS % 2.4 % (0-4.5); HEMATOCRIT 57.4 % (35.4-49); HEMOGLOBIN 18.2 GM/dL (11.7-16.9); LYMPH % 25.9 % (8-40); MCH 23.3 pg (25.7-33.7); MCHC 31.8 g/dl (32.0-35.9); MEAN CELL VOLUME 73.3 fl (80-96); MEAN PLT VOLUME 9.2 fl (7.5-11.1); MONO % 8.8 % (3.8-10.2); NEUT % 62.3 % (42.8-82.8); PLATELET COUNT 193 K/MM3 (134-434); RDW 15.6 % (11.9-15.9); URINE APPEARANCE CLEAR; URINE BILIRUBIN NEGATIVE (<2.0 mg/dL); URINE COLOR YELLOW; URINE GLUCOSE (UA) NEGATIVE (NEGATIVE); URINE KETONE NEGATIVE (NEGATIVE); URINE LEUK ESTERASE NEGATIVE (NEGATIVE); URINE NITRITE NEGATIVE (NEGATIVE); URINE PROTEIN 1+ (NEGATIVE); URINE UROBILINOGEN NEGATIVE mg/dL (0.2-1.0); WHITE BLOOD COUNT 8.3 K/mm3 (4.0-10.0)
[2018-01-10 05:52] VITALS: TEMP 98; BMI 33.5
[2018-01-10 05:59] LABS: RBC 7.83 M/mm3 (4.00-5.60)
[2018-01-10] MEDS ORDERED: KETOROLAC TROMETHAMINE 30 MG/1 ML VIAL ONE ×3 (05:59→08:11)
[2018-01-10] MEDS ORDERED: KETOROLAC TROMETHAMINE 30 MG/1 ML VIAL IVPUSH ONE (06:00)
[2018-01-10 06:04] LABS: EPI CELLS RARE /HPF (FEW); URINE MUCUS FEW
--- NOTE | 2018-01-10 06:09 | PDOC ---
History of Present Illness - General Chief Complaint: Back Pain Stated Complaint: R/O HIGH BP, KINDNEY STONES Time Seen by Provider: 01/10/18 06:08 History Source: Patient Exam Limitations: No Limitations - History of Present Illness Travel History: No Initial Comments: 01/10/18 06:24 42-year-old male with a history of renal colic presents to the emergency department complaining of right-sided flank pain. Pain is described as 8/10 sharp intermittent discomfort radiating to the right groin without fever, chills , nausea/vomiting/diarrhea, headache, dizziness, lightheadedness, neck/back pains, chest pain, shortness of breath, abdominal pains, urinary symptoms: Frequency/urgency/hesitancy, burning upon urination or hematuria. Patient denies extremity numbness or tingling sensation. Patient states symptoms feel similar to his previous symptoms when diagnosed with renal colic. In November of this year, patient was informed to get a CAT scan of his abdomen and pelvis with IV contrast to rule out renal mass the patient refused. Patient was initially adamantly refusing any type of imaging. Patient states he only wants pain medication and hypertensive medication and wants to be discharged. After in depth conversations, patient agreed to have abdomen/pelvis IV contrast. Past History - Past Medical History Allergies/Adverse Reactions: Allergies Allergy/AdvReac Type Severity Reaction Status Date / Time No Known Drug Allergies Allergy Verified 12/20/17 17:38 Home Medications: Ambulatory Orders Amlodipine Besylate [Norvasc -] 10 mg PO DAILY #30 tablet 11/23/14 Hydrochlorothiazide [Hctz -] 25 mg PO DAILY #30 tablet 11/23/14 Ibuprofen 600 mg PO Q6H PRN #14 tablet 02/20/17 Fluticasone Prop 0.05% Nasal [Flonase -] 1 - 2 spray NS BID #1 spray.pump Omeprazole 20 mg PO DAILY 30 Days #30 tablet. 12/20/17 Anemia: No Asthma: No Cancer: No Cardiac Disorders: No CVA: No COPD: No CHF: No Dementia: No Diabetes: No GI Disorders: No Disorders: No HTN: Yes Hypercholesterolemia: No Kidney Stones: Yes Liver Disease: No Seizures: No Thyroid Disease: No - Surgical History Abdominal Surgery: No Appendectomy: No Cardiac Surgery: No Cholecystectomy: No Lung Surgery: No Neurologic Surgery: No Orthopedic Surgery: No - Immunization History Immunization Up to Date: Yes - Suicide/Smoking/Psychosocial Hx Smoking Status: No Smoking History: Never smoked Have you smoked in the past 12 months: No Number of Cigarettes Smoked Daily: 0 Cigars Per Day: 0 Information on smoking cessation initiated: No 'Breaking Loose' booklet given: 12/04/12 Hx Alcohol Use: No Drug/Substance Use Hx: No Substance Use Type: None Hx Substance Use Treatment: No Review of Systems - Review of Systems Able to Perform ROS?: Yes Comments:: 01/10/18 06:22 CONSTITUTIONAL: Absent: fever, chills, diaphoresis, generalized weakness, malaise, loss of appetite HEENT: Absent: rhinorrhea, nasal congestion, throat pain, throat swelling, difficulty swallowing, mouth swelling, ear pain, eye pain, visual Changes CARDIOVASCULAR: Absent: chest pain, loss of consciousness, palpitations, irregular heart rate, peripheral edema RESPIRATORY: Absent: cough, shortness of breath, dyspnea with exertion, orthopnea, wheezing, stridor, hemoptysis GASTROINTESTINAL: Absent: abdominal pain, abdominal distension, nausea, vomiting, diarrhea, constipation, melena, hematochezia GENITOURINARY: +right flank pain/groin pain Absent: dysuria, frequency, urgency, hesitancy, hematuria, genital pain MUSCULOSKELETAL: Absent: myalgia, arthralgia, joint swelling SKIN: Absent: rash, itching, pallor HEMATOLOGIC/IMMUNOLOGIC: Absent: easy bleeding, easy bruising, lymphadenopathy, frequent infections ENDOCRINE: Absent: unexplained weight gain, unexplained weight loss, heat intolerance, cold intolerance NEUROLOGIC: Absent: headache, focal weakness or paresthesias, dizziness, unsteady gait, seizure, mental status changes, bladder or bowel incontinence Is the patient limited [place] proficient: No *Physical Exam - Vital Signs Last Vital Signs Temp Pulse Resp BP Pulse Ox 98.0 F 85 18 164/100 98 01/10/18 05:30 01/10/18 05:30 01/10/18 05:30 01/10/18 05:30 01/10/18 05:30 - Physical Exam Comments: 01/10/18 06:23 GENERAL: Well developed, well nourished. Awake and alert. No acute distress. HEENT: Normocephalic, atraumatic. PERRLA, EOMI. No conjunctival pallor. Sclera are non- icteric. Moist mucous membranes. Oropharynx is clear. NECK: Supple. Full ROM. No JVD. Carotid pulses 2+ and symmetric, without bruits. No thyromegaly. No lymphadenopathy. CARDIOVASCULAR: Regular rate and rhythm. No murmurs, rubs, or gallops. Distal pulses are 2+ and symmetric. PULMONARY: No evidence of respiratory distress. Lungs clear to auscultation bilaterally. No wheezing, rales or rhonchi. ABDOMINAL: Soft. Non-tender. Non-distended. No rebound or guarding. No organomegaly. Normoactive bowel sounds. MUSCULOSKELETAL +right cvat Normal range of motion at all joints. No bony deformities or tenderness. EXTREMITIES: No cyanosis. No clubbing. No edema. No calf tenderness. SKIN: Warm and dry. Normal capillary refill. No rashes. No jaundice. NEUROLOGICAL: Alert, awake, appropriate. Cranial nerves 2-12 intact. No deficits to light touch and temperature in face, upper extremities and lower extremities. No motor deficits in the in face, upper extremities and lower extremities. Normoreflexic in the upper and lower extremities. Normal speech. Toes are down- going bilaterally. Gait is normal without ataxia. PSYCHIATRIC: Cooperative. Good eye contact. Appropriate mood and affect. 01/10/18 06:23 ED Treatment Course - LABORATORY CBC & Chemistry Diagram: 01/10/18 05:35 01/10/18 05:35 - ADDITIONAL ORDERS Additional order review: Laboratory Results 01/10/18 05:35 Urine Color Yellow Urine Appearance Clear Urine pH 5.0 Ur Specific [place] 1.027 Urine Protein 1+ H Urine Glucose (UA) Negative Urine Ketones Negative Urine Blood Negative Urine Nitrite Negative Urine Bilirubin Negative Urine Urobilinogen Negative Ur Leukocyte Esterase Negative Urine WBC (Auto) 7 Urine RBC (Auto) 2 Ur Epithelial Cells Rare Urine Mucus Few 01/10/18 05:35 RBC 7.83 H MCV 73.3 L MCHC 31.8 L RDW 15.6 MPV 9.2 Neutrophils % 62.3 Lymphocytes % 25.9 Monocytes % 8.8 Eosinophils % 2.4 Basophils % 0.6 - RADIOLOGY Radiograph Interpretation: 01/10/18 06:24 CT abd/pelvis iv contrast: Progress Note - Progress Note Progress Note: 0700hrs: Signed out to ISRAEL Soto *DC/Admit/Observation/Transfer - Discharge Dispostion Condition at time of disposition: Fair - Referrals Referrals: Nya Arevalo MD [Primary Care Provider] - - Patient Instructions - Post Discharge Activity
[2018-01-10 06:12] LABS: ALBUMIN 3.8 g/dl (3.4-5.0); ALK PHOS 79 U/L (45-117); ANION GAP 9 MMOL/L (8-16); BILIRUBIN,TOTAL 0.3 mg/dL (0.2-1); BLOOD UREA NITROGEN 17 mg/dL (7-18); CALCIUM 9.6 mg/dL (8.5-10.1); CHLORIDE 101 mmol/L (98-107); CO2 27 mmol/L (21-32); GLUCOSE,RANDOM 123 mg/dL (74-106); POTASSIUM 3.7 mmol/L (3.5-5.1); SGOT/AST 13 U/L (15-37); SGPT/ALT 20 U/L (13-61); SODIUM 138 mmol/L (136-145); TOT PROT 7.8 g/dl (6.4-8.2)
[2018-01-10] MEDS ORDERED: amLODIPine BESYLATE 10 MG TABLET (FP) PO ONE (06:17)
[2018-01-10] MEDS ORDERED: amLODIPine BESYLATE 5 MG TABLET (FP) ONE (06:42)
[2018-01-10] MEDS ORDERED: morphine CARPU-JECT 4 MG/1 ML DISP.SYRIN IVPUSH ONE ×2 (07:50→08:56)
--- NOTE | 2018-01-10 07:54 | PDOC ---
*Physical Exam - Vital Signs Last Vital Signs Temp Pulse Resp BP Pulse Ox 98.0 F 75 18 154/111 H 99 01/10/18 05:30 01/10/18 07:40 01/10/18 07:40 01/10/18 07:40 01/10/18 07:40 - Physical Exam Comments: 01/10/18 07:58 Patient with history of renal stones presented with complaint of right flank pain which is typical symptoms for when he gets kidney stones. Patient given Toradol 30 mg for pain by report still in pain. She denies nausea, vomiting, chills or weakness. General Appearance: Yes: Nourished, Appropriately Dressed, Mild Distress HEENT: positive: Normal ENT Inspection, Pharynx Normal Neck: positive: Trachea midline, Supple Respiratory/Chest: positive: Lungs Clear, Normal Breath Sounds. negative: Chest Tender, Respiratory Distress, Accessory Muscle Use Cardiovascular: positive: Regular Rhythm, Regular Rate Gastrointestinal/Abdominal: positive: Normal Bowel Sounds, Tender (right flank) , Flat, Soft. negative: Organomegaly, Pulsatile Mass Musculoskeletal: positive: Normal Inspection. negative: CVA Tenderness Extremity: positive: Normal Inspection Neurologic: positive: Fully Oriented, Alert, Normal Mood/Affect ED Treatment Course - LABORATORY CBC & Chemistry Diagram: 01/10/18 05:35 01/10/18 05:35 - ADDITIONAL ORDERS Additional order review: Laboratory Results 01/10/18 01/10/18 05:35 05:35 Sodium 138 Potassium 3.7 Chloride 101 Carbon Dioxide 27 Anion Gap 9 BUN 17 Creatinine 1.0 Creat Clearance w eGFR > 60 Random Glucose 123 H Calcium 9.6 Total Bilirubin 0.3 AST 13 L ALT 20 Alkaline Phosphatase 79 Total Protein 7.8 Albumin 3.8 Urine Color Yellow Urine Appearance Clear Urine pH 5.0 Ur Specific [place] 1.027 Urine Protein 1+ H Urine Glucose (UA) Negative Urine Ketones Negative Urine Blood Negative Urine Nitrite Negative Urine Bilirubin Negative Urine Urobilinogen Negative Ur Leukocyte Esterase Negative Urine WBC (Auto) 7 Urine RBC (Auto) 2 Ur Epithelial Cells Rare Urine Mucus Few 01/10/18 05:35 RBC 7.83 H MCV 73.3 L MCHC 31.8 L RDW 15.6 MPV 9.2 Neutrophils % 62.3 Lymphocytes % 25.9 Monocytes % 8.8 Eosinophils % 2.4 Basophils % 0.6 - Medications Given in the ED: ED Medications Discontinued Medications Generic Name Dose Route Start Last Admin Trade Name Damaris PRN Reason Stop Dose Admin Amlodipine Besylate 10 mg 01/10/18 06:17 01/10/18 06:46 Norvasc - PO 01/10/18 06:18 10 mg ONCE ONE Administration Sodium Chloride 1,000 mls @ 1,000 mls/hr 01/10/18 05:33 01/10/18 06:00 Normal Saline - IV 01/10/18 06:32 1,000 mls/hr ASDIR STA Administration Ketorolac Tromethamine 30 mg 01/10/18 06:00 01/10/18 06:05 Toradol Injection - IVPUSH 01/10/18 06:01 30 mg ONCE ONE Administration Medical Decision Making - Medical Decision Making 01/10/18 07:59 Patient with history of renal stones presented with complaint of right flank pain which has been persistent with no nausea or vomiting or any other abdominal symptoms. Exam significant for moderate to right tenderness without guarding or rebound. CAT scan of abdominal pelvis with contrast shows small 2 renal stones which is nonobstructing. Morphine 4mg IV given for pain. Patient is stable for discharge on NSAIDs and Flomax with urology follow-up. *DC/Admit/Observation/Transfer Diagnosis at time of Disposition: Renal colic, Right flank pain Hydronephrosis Qualifiers: Hydronephrosis type: with renal calculous obstruction Qualified Code(s): N13.2 - Hydronephrosis with renal and ureteral calculous obstruction - Discharge Dispostion Disposition: HOME Condition at time of disposition: Stable - Prescriptions Prescriptions: Ketorolac Tromethamine [Toradol -] 10 mg PO TID PRN #21 tablet PRN Reason: pain Tamsulosin HCl [Flomax] 0.4 mg PO DAILY #10 cap.er.24h - Referrals Referrals: Nya Arevalo MD [Primary Care Provider] - - Patient Instructions Printed Discharge Instructions: Kidney Stones -- Adult Additional Instructions: your cat scan shows small kidney stones. increase fluid intake and take medications as prescribed. follow-up with urologist as soon as possible in the next 2-3days - Post Discharge Activity
[2018-01-10] MEDS ORDERED: KETOROLAC TROMETHAMINE 30 MG/1 ML VIAL IM ONE (08:08)
[2018-01-10] MEDS ORDERED: morphine SULFATE 4 MG/ML VIAL ONE (09:25)
[2018-01-10 11:03] VITALS: BP 154/107; PULSE 84
== END 2018-01-10 11:02 | disposition home or self-care (01) ==
LOC: JER 05:24
PROC: 3E0337Z Introduction of Electrolytic and Water Balance Substance into Peripheral Vein, Percutaneous Approach (ICD-10-PCS; principal; 2018-01-10)
PROC: 3E033NZ Introduction of Analgesics, Hypnotics, Sedatives into Peripheral Vein, Percutaneous Approach (ICD-10-PCS; 2018-01-10)
PROC: 3E0333Z Introduction of Anti-inflammatory into Peripheral Vein, Percutaneous Approach (ICD-10-PCS; 2018-01-10)
PROC: 3E0233Z Introduction of Anti-inflammatory into Muscle, Percutaneous Approach (ICD-10-PCS; 2018-01-10)
DX: N13.2 Hydronephrosis with renal and ureteral calculous obstruction (principal); Z87.442 Personal history of urinary calculi; I10 Essential (primary) hypertension
CPT/HCPCS: 36415; 74177-TC; 80053; 81003; 81015; 85025; 96361; 96372; 96374; 96375; 99282-25; J7030

== ENCOUNTER 2018-02-18 13:15 | Day surgery (SDC) | payer OTHER ==
[2018-02-03 17:04] VITALS: BMI 35.9
[2018-02-18] MEDS ORDERED: ACETAMINOPHEN 325 MG TABLET (FP) PO PRN (14:50)
[2018-02-18] MEDS ORDERED: oxyCODONE HCL 5 MG TABLET PO PRN (14:50)
[2018-02-18] MEDS ORDERED: ONDANSETRON 4 MG/2 ML VIAL IVPUSH PRN (14:50)
[2018-02-18] MEDS ORDERED: PROPOFOL 20 ML ONE ×2 (15:21→15:30)
[2018-02-18] MEDS ORDERED: ceFAZolin SODIUM 1 GM VIAL IVPB ONE (15:36)
[2018-02-18] MEDS ORDERED: ceFAZolin SODIUM 1 GM VIAL ONE (15:37)
[2018-02-18] MEDS ORDERED: DEXAMETHASONE SOD PHOSPHATE 4 MG/1 ML VIAL ONE (15:49)
--- NOTE | 2018-02-18 16:28 | OP ---
Operative Note - Note: Operative Date: 02/18/18 Pre-Operative Diagnosis: rt. hydro, rt. ureteral stones Operation: cysto, rt. retro., rt. ureteroscopy rt. laser lithotripsy and rt. stone basketting Findings: rt. ureteral stones and rt. hydro. Post-Operative Diagnosis: Other Surgeon: Khoa Crain Anesthesia: General Specimens Removed: stone fragments Estimated Blood Loss (mls): 0 Drains, Volume Out (mls): 0 Blood Volume Replaced (mls): 0 Fluid Volume Replaced (mls): 0 Operative Report Dictated: Yes
[2018-02-18] MEDS ORDERED: ACETAMINOPHEN 1000 MG/100 ML VIAL (NON FORMULARY) IVPB ONE ×2 (17:35→17:41)
--- NOTE | 2018-02-18 17:37 | OP ---
DATE OF OPERATION: PREOPERATIVE DIAGNOSIS: Right hydronephrosis, right ureteral stones. POSTOPERATIVE DIAGNOSIS: Right hydronephrosis, right ureteral stones. OPERATIVE PROCEDURE: Cystourethroscopy, right retrograde pyelogram, right ureteroscopy, right laser lithotripsy, right stone basketing. ANESTHESIA: General. DESCRIPTION OF PROCEDURE: Under above stated anesthesia, patient was prepped and draped in the usual sterile manner. He was placed in the dorsal lithotomy position. Cystoscopy revealed normal anterior urethra. Prostatic urethra was wide open. The bladder revealed a generalized hyperemia. No lesions were noted. No calculi were seen. Ureteral orifices were within normal limits. Efflux of clear urine was noted on the left side. None was coming from the right side. A Flexi-Tip catheter was placed into the right ureteral orifice and 10 mL of contrast was injected. This revealed filling defects in the mid ureter with moderate hydroureteronephrosis on the right side. A glidewire was passed up the right renal unit. The cystoscope was removed. A semirigid ureteroscope was inserted. Ureteroscopy was then performed per usual manner. Lower ureter was within normal limits. Mid ureter revealed 2 stones, each approximately 7 mm. Using a 365 holmium fiber at an energy of 1 and a rate of 15, the stones were lased into multiple fragments. Several fragments were then removed with a stone basket and sent to pathology. Continuation of the ureteroscopy to the renal pelvis revealed a dilated renal pelvis with no evidence of stones. Therefore, the ureteroscope was removed as per patient's wishes. He refuses to have a stent, therefore the glidewire was removed, the bladder was emptied. He tolerated the procedure. He returned to the recovery room in good condition. Rubi [id number]
[2018-02-18] MEDS ORDERED: ACETAMINOPHEN INJECTION 100 ML IVPB ONE (17:41)
[2018-02-18] MEDS ORDERED: KETOROLAC TROMETHAMINE 30 MG/1 ML VIAL ONE (17:44)
[2018-02-18] MEDS ORDERED: KETOROLAC TROMETHAMINE 30 MG/1 ML VIAL IVPUSH ONE ×2 (17:44→17:45)
[2018-02-18] MEDS ORDERED: HYDROmorphone HCL CARPU-JECT 2 MG/1 ML DISP.SYRIN IVPUSH ONE ×2 (18:00→18:15)
[2018-02-18] MEDS ORDERED: HYDROmorphone HCl 2 MG/ML VIAL ONE ×2 (18:05→18:52)
[2018-02-18] MEDS ORDERED: HYDROmorphone HCL CARPU-JECT 2 MG/1 ML DISP.SYRIN IVPB ONE (18:56)
[2018-02-18] MEDS ORDERED: HYDROmorphone HCl 2 MG/ML VIAL IVPB ONE (20:15)
[2018-02-18] MEDS: HYDROmorphone HCl 2 MG/ML VIAL IVPB PRN (20:29)
[2018-02-19] MEDS: HYDROmorphone HCl 2 MG/ML VIAL IVPB PRN ×3 (00:32→08:29)
[2018-02-19 05:49] VITALS: BP 152/84; PULSE 89; TEMP 98.2
--- NOTE | 2018-02-24 09:08 | PATH ---
Surgical Pathology Report Patient Name: MITUL VIERA Med. Rec. #: [id number] /Age/Gender: 1975 (Age: 42) / M Account: [id number] Location: [facility] SURGICAL Taken: 02/18/2018 Received: 02/23/2018 Reported: 02/24/2018 Physicians: Tobin Crain M.D. Specimen(s) Received RIGHT URETER STONE Clinical History Right ureteral stone Final Diagnosis UPPER URETER STONE, RIGHT, LASER LITHOTRIPSY AND STONE BASKETING: URETEROLITHIASIS. MACROSCOPIC DIAGNOSIS. Electronically Signed Carole Canales M.D. Gross Description Received fresh labeled "right upper ureter stone," are 3 crowder, irregular calculi ranging from 0.2-0.5 cm in greatest dimension. The specimen is sent for chemical analysis. /02/23/201802/23/2018
[2018-03-01 15:28] LABS: URIC ACID 100 % (.)
== END 2018-02-19 11:55 | disposition home or self-care (01) ==
LOC: JASU-SURG 13:15 → J5S 20:11 → JASU-SURG 02-19 11:55
PROVIDERS: ATTEND Urology
PROC: 0TC68ZZ Extirpation of Matter from Right Ureter, Via Natural or Artificial Opening Endoscopic (ICD-10-PCS; principal; 2018-02-18 14:00)
PROC: BT1DYZZ Fluoroscopy of Right Kidney, Ureter and Bladder using Other Contrast (ICD-10-PCS; 2018-02-18 14:00)
DX: N20.1 Calculus of ureter (principal); N13.39 Other hydronephrosis
CPT/HCPCS: 36415; 76000-TC-FY; 82360; 87086; 88300-TC; 94760; J0131

== ENCOUNTER 2018-11-24 11:56 | Emergency (ER) | payer OTHER ==
[2018-11-24 12:01] VITALS: TEMP 97.5; BMI 34.4
[2018-11-24] MEDS ORDERED: SODIUM CHLORIDE 0.9% 500 ML INFUS.BAG IV ONE (12:36)
[2018-11-24] MEDS ORDERED: KETOROLAC TROMETHAMINE 30 MG/1 ML VIAL IVPUSH ONE (12:36)
--- NOTE | 2018-11-24 12:38 | PDOC ---
History of Present Illness - General Chief Complaint: Pain Stated Complaint: PAIN Time Seen by Provider: 11/24/18 12:16 History Source: Patient Exam Limitations: No Limitations - History of Present Illness Initial Comments: 11/24/18 12:35 Kathleen Fuentes is a 43M with PMH HTN and renal calculus s/p laser lithotripsy here for one day of bilateral flank and groin pain. Patient was asleep this morning when he was awakened from sleep at 4AM by pain in both flanks radiating down to the groin. Similar pain to last episode of renal calculus treated a few months ago, but now on both sides. Reports some difficulty with urination, possible blood, as well as dysuria. Nausea, no vomiting, mild lower abd pain. Able to walk with difficulty. Took q4hr Percocet and ibuprofen given to him by doctor given history of renal stones, pain did not improve. Otherwise denies MULTANI, fever, chest pain, SOB, dizziness, extremity pain. NKDA PMH HTN, on medication, did not take in AM PSH laser lithotripsy Past History - Past Medical History Allergies/Adverse Reactions: Allergies Allergy/AdvReac Type Severity Reaction Status Date / Time No Known Drug Allergies Allergy Verified 11/24/18 11:57 Home Medications: Ambulatory Orders Amlodipine Besylate [Norvasc -] 10 mg PO DAILY #30 tablet 11/23/14 Hydrochlorothiazide [Hctz -] 25 mg PO DAILY #30 tablet 11/23/14 Ibuprofen 600 mg PO Q6H PRN #14 tablet 02/20/17 Fluticasone Prop 0.05% Nasal [Flonase -] 1 - 2 spray NS BID #1 spray.pump Omeprazole 20 mg PO DAILY 30 Days #30 tablet.dr 12/20/17 Ketorolac Tromethamine [Toradol -] 10 mg PO TID PRN #21 tablet 01/10/18 Tamsulosin HCl [Flomax] 0.4 mg PO DAILY #10 cap.er.24h 01/10/18 Tamsulosin HCl [Flomax] 0.4 mg PO DAILY #5 capsule 11/24/18 Anemia: No Asthma: No Cancer: No Cardiac Disorders: No CVA: No COPD: No CHF: No Dementia: No Diabetes: No GI Disorders: No Disorders: No HTN: Yes Hypercholesterolemia: No Kidney Stones: Yes Liver Disease: No Seizures: No Thyroid Disease: No - Surgical History Abdominal Surgery: No Appendectomy: No Cardiac Surgery: No Cholecystectomy: No Lung Surgery: No Neurologic Surgery: No Orthopedic Surgery: No - Immunization History Immunization Up to Date: Yes - Psycho Social/Smoking Cessation Hx Smoking Status: No Smoking History: Never smoked Have you smoked in the past 12 months: No Number of Cigarettes Smoked Daily: 0 Cigars Per Day: 0 Information on smoking cessation initiated: No 'Breaking Loose' booklet given: 12/04/12 Hx Alcohol Use: No Drug/Substance Use Hx: No Substance Use Type: None Hx Substance Use Treatment: No Review of Systems - Review of Systems Able to Perform ROS?: Yes Is the patient limited Latvian proficient: No Constitutional: No: Chills, Fever, Weakness HEENTM: No: Symptoms Reported Respiratory: No: Symptoms reported Cardiac (ROS): No: Symptoms Reported ABD/GI: Yes: Nausea. No: Constipated, Diarrhea, Vomiting : Yes: Dysuria, Flank Pain, Hematuria, Pain. No: Burning, Discharge, Frequency, Incontinence Musculoskeletal: No: Symptoms Reported Integumentary: No: Symptoms Reported Neurological: No: Symptoms reported Endocrine: No: Symptoms Reported Hematologic/Lymphatic: No: Symptoms Reported All Other Systems: Reviewed and Negative *Physical Exam - Vital Signs Last Vital Signs Temp Pulse Resp BP Pulse Ox 97.5 F L 90 17 166/115 H 98 11/24/18 11:57 11/24/18 11:57 11/24/18 11:57 11/24/18 11:57 11/24/18 11:57 - Physical Exam General Appearance: Yes: Nourished, Appropriately Dressed, Other (large male in mild distress shifting back in forth in chair). No: Apparent Distress HEENT: positive: EOMI, RASHID, Normal Voice, Symmetrical. negative: Scleral Icterus (R), Scleral Icterus (L), Pharyngeal Erythema, Tonsillar Exudate, Tonsillar Erythema Neck: positive: Trachea midline, Normal Thyroid, Supple. negative: Tender, Rigid, Lymphadenopathy (R), Lymphadenopathy (L) Respiratory/Chest: positive: Lungs Clear, Normal Breath Sounds. negative: Respiratory Distress, Accessory Muscle Use, Crackles, Rales, Rhonchi Cardiovascular: positive: Regular Rhythm, Regular Rate. negative: Murmur Gastrointestinal/Abdominal: positive: Normal Bowel Sounds, Tender (suprapubic to upper groin), Flat, Soft. negative: Organomegaly, Pulsatile Mass Musculoskeletal: positive: Normal Inspection, CVA Tenderness (R), CVA Tenderness (L), Other (no midline spinal tenderness, good ROM at spine, tender to both flanks). negative: Vertebral Tenderness Extremity: positive: Normal Capillary Refill, Normal Inspection, Normal Range of Motion, Other (lower extremities moving spontanously, able to stand from sitting, no evidence of injury). negative: Tender, Coldness, Cyanosis, Delayed Capillary Refill, Pedal Edema Integumentary: positive: Normal Color, Dry, Warm Neurologic: positive: Fully Oriented, Alert, Normal Mood/Affect, Normal Response Medical Decision Making - Medical Decision Making 11/24/18 12:35 Kathleen Fuentes is a 43M with PMH HTN and renal calculus s/p laser lithotripsy here for one day of bilateral flank and groin pain. Patient presentation is highly consistent with renal calculi, although unusual to have bilateral flank pain, concerning for obstructing stone in urethra and bilateral hydronephrosis vs. pyelonephritis. MSK pain also possible but less likely, patient does not report trauma or back strain activities. Abdominal pain ddx includes AAA vs. appendicitis vs. cholecystitis, less likely than renal pathology. Patient requires spiral CT for eval of renal stones, giving 1L NS and 30mg Toradol IV for pain, UA to evaluate for blood vs. UTI/pyelo. 11/24/18 14:[address] IMPRESSION: Small bilateral nonobstructing calyceal calculi within the kidneys with a 2 mm left UVJ calculus and ureterectasis. There is no significant associated hydronephrosis. Presentation consistent with passing of renal stone, no AAA or other findings noted on CT. Will recommend hydration and prescribe tamsulosin, plan to dispo home with urology follow-up. Discharge - Discharge Information Problems reviewed: Yes Clinical Impression/Diagnosis: Kidney stone, Ureterectasis Condition: Stable Disposition: HOME - Admission No - Additional Discharge Information Prescriptions: Tamsulosin HCl [Flomax] 0.4 mg PO DAILY #5 capsule - Follow up/Referral Referrals: Nya Arevalo MD [Primary Care Provider] - Jose Alejandro Ferguson MD [Staff Physician] - - Patient Discharge Instructions Patient Printed Discharge Instructions: DI for Kidney Stones Additional Instructions: Today you were evaluated for kidney stones. Your CT scan shows that you have a small stone very close to your bladder that should pass in the next few days. Please stay hydrated, drink lots of fluids, take ibuprofen as needed. We have provided a prescription for a medication called tamsulosin to help relax the muscles in your ureter and help the stone pass, take one per day until stone passes. Please follow-up with a urologist, a referral to Dr. Ferguson has been provided. Return to the emergency room if you experience nausea, vomiting, fever , chills, experience blood in your urine, have extreme pain uncontrolled by medications, or become unable to urinate. - Post Discharge Activity
[2018-11-24] MEDS ORDERED: KETOROLAC TROMETHAMINE 30 MG/1 ML VIAL ONE (12:49)
--- NOTE | 2018-11-24 12:57 | PDOC ---
Attending Attestation - Resident Resident Name: Blake Christensen - ED Attending Attestation I have performed the following: I have examined & evaluated the patient, The case was reviewed & discussed with the resident, I agree w/resident's findings & plan, Exceptions are as noted - HPI HPI: 11/24/18 14:10 43 years old with known history of kidney stones presents with colicky flank left greater than right pain - Physicial Exam PE: 11/24/18 12:53 - Medical Decision Making 11/24/18 14:37 Well-appearing no apparent distress 2 mm kidney stone on CT patient tolerating fluids he will follow-up with his urologist this week Findings, need for follow-up and strict return instructions discussed with patient.
[2018-11-24 13:14] LABS: EPI CELLS 2.7 /HPF (0-5/HPF); HYALINE CASTS 19 /lpf (0-8); URINE APPEARANCE CLOUDY; URINE BACTERIA 5.1 /hpf (NEGATIVE); URINE BILIRUBIN NEGATIVE (NEGATIVE); URINE COLOR YELLOW; URINE GLUCOSE (UA) NEGATIVE (NEGATIVE); URINE KETONE NEGATIVE (NEGATIVE); URINE LEUK ESTERASE NEGATIVE (NEGATIVE); URINE NITRITE NEGATIVE (NEGATIVE); URINE PROTEIN 1+ (NEGATIVE); URINE RBC 26 /hpf (0-4); URINE UROBILINOGEN 0.2 mg/dL (0.2-1.0); URINE WBC 2 /hpf (0-5)
[2018-11-24 14:44] VITALS: BP 139/88; PULSE 84
== END 2018-11-24 14:48 | disposition home or self-care (01) ==
LOC: JER 11:56
PROC: 3E0337Z Introduction of Electrolytic and Water Balance Substance into Peripheral Vein, Percutaneous Approach (ICD-10-PCS; principal; 2018-11-24)
DX: N20.0 Calculus of kidney (principal); N13.4 Hydroureter; I10 Essential (primary) hypertension
CPT/HCPCS: 74176-TC; 81003; 87086; 99281-25

== ENCOUNTER 2019-08-25 08:26 | Emergency (ER) | payer OTHER ==
[2019-08-25 08:42] VITALS: BP 142/104; PULSE 85; TEMP 98.1; BMI 28.7
--- NOTE | 2019-08-25 09:12 | PDOC ---
History of Present Illness - General Chief Complaint: Pain Stated Complaint: PAIN Time Seen by Provider: 08/25/19 09:08 - History of Present Illness Initial Comments: 08/25/19 09:12 43M with PMH HTN and renal calculus s/p laser lithotripsy Past History - Medical History Allergies/Adverse Reactions: Allergies Allergy/AdvReac Type Severity Reaction Status Date / Time No Known Drug Allergies Allergy Verified 08/25/19 08:33 Home Medications: Ambulatory Orders Amlodipine Besylate [Norvasc -] 10 mg PO DAILY 08/25/19 Fluticasone Furoate [Arnuity Ellipta] 1 inh IH ASDIR 08/25/19 Hydrochlorothiazide [Hctz -] 25 mg PO DAILY 08/25/19 Losartan Potassium [Cozaar -] 50 mg PO DAILY 08/25/19 Anemia: No Asthma: No Cancer: No Cardiac Disorders: No CVA: No COPD: No CHF: No Dementia: No Diabetes: No GI Disorders: No Disorders: No HTN: Yes Hypercholesterolemia: No Kidney Stones: Yes Liver Disease: No Seizures: No Thyroid Disease: No - Surgical History Abdominal Surgery: No Appendectomy: No Cardiac Surgery: No Cholecystectomy: No Lung Surgery: No Neurologic Surgery: No Orthopedic Surgery: No - Immunization History Immunization Up to Date: Yes - Psycho-Social/Smoking History Smoking Status: No Smoking History: Never smoked Have you smoked in the past 12 months: No Number of Cigarettes Smoked Daily: 0 Cigars Per Day: 0 'Breaking Loose' booklet given: 12/04/12 - Substance Abuse Hx (Audit-C & DAST Scrn) How often the patient has a drink containing alcohol: Never Score: In Men: 4 or > Positive; In Women: 3 or > Positive: 0 Screen Result (Pos requires Nsg. Audit-10AR): Negative In the last yr the pt used illegal drug/Rx for NonMed reason: No Score: Yes response is considered Positive: 0 Screen Result (Positive result requires Nsg. DAST-10): Negative *Physical Exam - Vital Signs Last Vital Signs Temp Pulse Resp BP Pulse Ox 98.1 F 85 18 142/104 H 99 08/25/19 08:31 08/25/19 08:31 08/25/19 08:31 08/25/19 08:31 08/25/19 08:31 Discharge - Follow up/Referral Referrals: Nya Arevalo MD [Primary Care Provider] - - Patient Discharge Instructions - Post Discharge Activity
--- NOTE | 2019-08-25 09:45 | PDOC ---
Documentation entered by Ritika Vázquez SCRIBE, acting as scribe for Juan M Martin MD. Juan M Martin MD: This documentation has been prepared by the Kathie whiteside Brenda, SCRIBE, under my direction and personally reviewed by me in its entirety. I confirm that the documentation accurately reflects all work, treatment, procedures, and medical decision making performed by me. History of Present Illness - General Chief Complaint: Pain Stated Complaint: PAIN Time Seen by Provider: 08/25/19 09:08 History Source: Patient Exam Limitations: No Limitations - History of Present Illness Initial Comments: 08/25/19 09:32 The patient is a 43 year old male with a significant PMH of HTN who presents to the ED for evaluation of high urine sugar. Patient notes that he was told about his high urine sugar while visiting his urologist yesterday. He also endorses a few days of malaise accompanied by body aches, a headache and a sore throat. He reports never having diabetes before. The patient denies chest pain, shortness of breath and dizziness. Denies fever, chills, nausea, vomiting, diarrhea and constipation. Denies frequency, urgency and hematuria. The patient denies any other symptoms. Allergies: NKDA Social history: No reported hx of tobacco use, alcohol use or illicit drug use. PCP: Irina Urologist: Khoa Crain Past History - Medical History Allergies/Adverse Reactions: Allergies Allergy/AdvReac Type Severity Reaction Status Date / Time No Known Drug Allergies Allergy Verified 08/25/19 08:33 Home Medications: Ambulatory Orders Amlodipine Besylate [Norvasc -] 10 mg PO DAILY 08/25/19 Fluticasone Furoate [Arnuity Ellipta] 1 inh IH ASDIR 08/25/19 Hydrochlorothiazide [Hctz -] 25 mg PO DAILY 08/25/19 Losartan Potassium [Cozaar -] 50 mg PO DAILY 08/25/19 Anemia: No Asthma: No Cancer: No Cardiac Disorders: No CVA: No COPD: No CHF: No Dementia: No Diabetes: No GI Disorders: No Disorders: No HTN: Yes Hypercholesterolemia: No Kidney Stones: Yes Liver Disease: No Seizures: No Thyroid Disease: No - Surgical History Abdominal Surgery: No Appendectomy: No Cardiac Surgery: No Cholecystectomy: No Lung Surgery: No Neurologic Surgery: No Orthopedic Surgery: No - Immunization History Immunization Up to Date: Yes - Psycho-Social/Smoking History Smoking Status: No Smoking History: Never smoked Have you smoked in the past 12 months: No Number of Cigarettes Smoked Daily: 0 Cigars Per Day: 0 'Breaking Loose' booklet given: 12/04/12 - Substance Abuse Hx (Audit-C & DAST Scrn) How often the patient has a drink containing alcohol: Never Score: In Men: 4 or > Positive; In Women: 3 or > Positive: 0 Screen Result (Pos requires Nsg. Audit-10AR): Negative In the last yr the pt used illegal drug/Rx for NonMed reason: No Score: Yes response is considered Positive: 0 Screen Result (Positive result requires Nsg. DAST-10): Negative Review of Systems - Review of Systems Able to Perform ROS?: Yes Comments:: 08/25/19 09:37 Constitutional - (+) Malaise (+) Body aches. Pt denies Fever, Chills. HEENT: (+) Sore throat. Denies vision changes. Respiratory: Denies cough, sob, hemoptysis Cardiac: denies chest pain, palpitations, light headedness, leg swelling Abd/GI: denies abd pain, nausea, vomiting, blood per rectum, melena, diarrhea : denies dysuria, frequency, discharge Musculskelatal - denies back pain, joint swelling skin - denies bruising, erythema, rash neurological: (+) Headache. Denies numbness, focal weakness, tingling, ataxia, weakness hematologic: denies anemia, easy bruising, easy bleeding *Physical Exam - Vital Signs Last Vital Signs Temp Pulse Resp BP Pulse Ox 98.1 F 85 18 142/104 H 99 08/25/19 08:31 08/25/19 08:31 08/25/19 08:31 08/25/19 08:31 08/25/19 08:31 - Physical Exam 08/25/19 09:40 GENERAL: The patient is awake, alert, and fully oriented, Nontoxic - in no acute distress. HEAD: Normocephalic, atraumatic. EYES: extraocular movements intact, sclera anicteric, conjunctiva clear. ENT: Normal voice, Moist mucous membranes. NECK: Normal range of motion, supple without lymphadenopathy, JVD, or masses. LUNGS: Breath sounds equal, clear to auscultation bilaterally. No wheezes, no crackles, no rales. HEART: Regular rate and rhythm, normal S1 and S2 without murmur, rub or gallop. ABDOMEN: Soft, nontender, normoactive bowel sounds. No guarding, no rebound. No masses. EXTREMITIES: Normal range of motion, no edema. No clubbing or cyanosis. No cords, erythema, or tenderness. NEUROLOGICAL: No facial asymmetry, Normal speech. PSYCH: Normal mood, normal affect. SKIN: Warm, Dry, normal turgor, no rashes or lesions noted. ED Treatment Course - LABORATORY CBC & Chemistry Diagram: 08/25/19 09:20 08/25/19 09:20 Medical Decision Making - Medical Decision Making 08/25/19 09:44 will r/o anemia, metabolic derangement, dka pt well appearing otherwise. vitals wnl. 08/25/19 11:06 pt labs reviewed bgm 50 will dc with outpatient fu return precutions were discused Discharge - Discharge Information Problems reviewed: Yes Clinical Impression/Diagnosis: Body aches, Hypoglycemia Condition: Improved Disposition: HOME - Admission No - Follow up/Referral Referrals: Nya Arevalo MD [Primary Care Provider] - - Patient Discharge Instructions Patient Printed Discharge Instructions: DI for Hyperglycemia -- Adult Additional Instructions: Return to the emergency department immediately with ANY new, persistent or worsening symptoms. You MUST call and follow up with your doctor tomorrow for further evaluation of your symptoms. Results were discussed with you. Please make sure your doctor reviews the results of your emergency evaluation. Your Emergency Department visit is not complete without a follow up with your doctor. If you had any xrays during your visit, it was read preliminarily by myself, a Radiologist will review it and if there are any additional findings we will call you. Print Language: LUXEMBOURGER - Post Discharge Activity
[2019-08-25 10:02] LABS: BASO % 0.7 % (0-2.0); EOS % 1.8 % (0-4.5); HEMATOCRIT 55.8 % (35.4-49); MCH 24.7 pg (25.7-33.7); MCHC 32.3 g/dl (32.0-35.9); MEAN CELL VOLUME 76.4 fl (80-96); MEAN PLT VOLUME 9.2 fl (7.5-11.1); MONO % 7.3 % (3.8-10.2); NEUT % 62.2 % (42.8-82.8); PLATELET COUNT 202 K/MM3 (134-434); RDW 16.3 % (11.9-15.9); WHITE BLOOD COUNT 7.5 K/mm3 (4.0-10.0)
[2019-08-25 10:04] LABS: VENOUS BASE EXCESS 0.8 mmol/L (-2-2); VENOUS O2 SATURATION 94.7 % (70-80); VENOUS PCO2 37.4 mmHg (38-52); VENOUS PH 7.437 (7.310-7.410)
[2019-08-25 10:57] LABS: ALBUMIN 3.9 g/dl (3.4-5.0); BILIRUBIN,TOTAL 0.5 mg/dL (0.2-1); BLOOD UREA NITROGEN 13.4 mg/dL (7-18); CREATININE 0.9 mg/dL (0.55-1.3); POTASSIUM 3.7 mmol/L (3.5-5.1); TOT PROT 7.8 g/dl (6.4-8.2)
== END 2019-08-25 11:15 | disposition home or self-care (01) ==
LOC: JER 08:26
DX: R53.1 Weakness (principal); E16.2 Hypoglycemia, unspecified
CPT/HCPCS: 36415; 80053; 82010; 82803; 82962; 85025; 99284-25

== ENCOUNTER 2020-01-24 07:33 | Emergency (ER) | payer OTHER ==
[2020-01-24 07:48] VITALS: BP 142/101; PULSE 89; TEMP 98.1; BMI 37.6
== END 2020-01-24 08:59 | disposition home or self-care (01) ==
LOC: JER 07:33
DX: U07.1 COVID-19 (principal)
CPT/HCPCS: 71045-TC-FY; 99284-25; C9803; U0003

== ENCOUNTER 2020-11-11 16:48 | Emergency (ER) | payer OTHER ==
[2020-11-11 17:09] VITALS: BP 167/108; PULSE 81; TEMP 98; BMI 33.5
[2020-11-11] MEDS ORDERED: amLODIPine BESYLATE 10 MG TABLET (FP) PO ONE (18:01)
[2020-11-11] MEDS ORDERED: KETOROLAC TROMETHAMINE 30 MG/1 ML VIAL IM ONE (18:05)
[2020-11-11] MEDS ORDERED: KETOROLAC TROMETHAMINE 30 MG/1 ML VIAL ONE (18:32)
[2020-11-11] MEDS ORDERED: amLODIPine BESYLATE 5 MG TABLET (FP) ONE (18:32)
[2020-11-11] MEDS ORDERED: KETOROLAC TROMETHAMINE 30 MG/1 ML VIAL IVPUSH ONE (18:33)
[2020-11-11] MEDS ORDERED: KETOROLAC TROMETHAMINE 15 MG/ML VIAL IVPUSH ONE (18:34)
[2020-11-11 19:35] LABS: BASO % 0.8 % (0-2.0); EOS % 1.9 % (0-4.5); HEMATOCRIT 50.2 % (35.4-49); HEMOGLOBIN 16.6 GM/dL (11.7-16.9); LYMPH % 33.7 % (8-40); MCH 24.8 pg (25.7-33.7); MEAN CELL VOLUME 75.2 fl (80-96); MEAN PLT VOLUME 8.8 fl (7.5-11.1); MONO % 8.2 % (3.8-10.2); NEUT % 55.4 % (42.8-82.8); PLATELET COUNT 214 10^3/uL (134-434); RBC 6.67 M/mm3 (4.00-5.60); WHITE BLOOD COUNT 7.8 K/mm3 (4.0-10.0)
[2020-11-11 19:59] LABS: CALCIUM 9.5 mg/dL (8.5-10.1)
[2020-11-11 20:00] LABS: BLOOD UREA NITROGEN 18.2 mg/dL (7-18)
[2020-11-11 20:03] LABS: CREATININE 0.8 mg/dL (0.55-1.3)
[2020-11-11] MEDS ORDERED: METOCLOPRAMIDE HCL INJECTION 10 MG/2 ML VIAL IVPUSH ONE (20:27)
[2020-11-11] MEDS ORDERED: ACETAMINOPHEN 1000 MG/100 ML VIAL (NON FORMULARY) IVPB ONE (20:27)
[2020-11-11] MEDS ORDERED: METOCLOPRAMIDE HCL INJECTION 10 MG/2 ML VIAL ONE (20:30)
[2020-11-11] MEDS ORDERED: ACETAMINOPHEN INJECTION 100 ML IVPB ONE (20:31)
== END 2020-11-11 21:44 | disposition home or self-care (01) ==
LOC: JER 16:48
PROC: 3E033GC Introduction of Other Therapeutic Substance into Peripheral Vein, Percutaneous Approach (ICD-10-PCS; principal; 2020-11-11)
DX: I10 Essential (primary) hypertension (principal)
CPT/HCPCS: 36415; 70450-TC; 80048; 85025; 96374; 96375; 99285-25; J0131

== ENCOUNTER 2021-05-20 11:17 | Emergency (ER) | payer OTHER ==
[2021-05-20 11:27] VITALS: BP 130/87; PULSE 82; TEMP 97.7; BMI 33.5
[2021-05-20] MEDS ORDERED: KETOROLAC TROMETHAMINE 30 MG/1 ML VIAL IM ONE (12:43)
[2021-05-20] MEDS ORDERED: KETOROLAC TROMETHAMINE 30 MG/1 ML VIAL ONE (13:01)
[2021-05-20 13:15] LABS: EPI CELLS >36 /uL (0-25.1); HYALINE CASTS 22 /uL (0-3.1); URINE APPEARANCE CLOUDY; URINE BACTERIA 22 /uL (0-1359); URINE BILIRUBIN NEGATIVE (NEGATIVE); URINE COLOR YELLOW; URINE GLUCOSE (UA) 2+ (NEGATIVE); URINE KETONE NEGATIVE (NEGATIVE); URINE LEUK ESTERASE 2+ (NEGATIVE); URINE NITRITE NEGATIVE (NEGATIVE); URINE PROTEIN 1+ (NEGATIVE); URINE RBC 77 /uL (0-23.9); URINE UROBILINOGEN 0.2 mg/dL (0.2-1.0); URINE WBC 429 /uL (0-25.8)
== END 2021-05-20 13:56 | disposition home or self-care (01) ==
LOC: JER 11:17
PROC: 3E0233Z Introduction of Anti-inflammatory into Muscle, Percutaneous Approach (ICD-10-PCS; principal; 2021-05-20)
DX: R30.0 Dysuria (principal); N50.819 Testicular pain, unspecified
CPT/HCPCS: 81003; 87086; 99284-25

== ENCOUNTER 2021-08-16 10:49 | Emergency (ER) | payer OTHER ==
[2021-08-16 11:34] VITALS: BP 128/81; TEMP 98.5; BMI 33.5
[2021-08-16] MEDS ORDERED: predniSONE 20 MG TABLET (UD) PO ONE (13:30)
[2021-08-16] MEDS ORDERED: predniSONE 20 MG TABLET (UD) ONE (13:31)
[2021-08-16 13:51] VITALS: PULSE 89
== END 2021-08-16 13:52 | disposition home or self-care (01) ==
LOC: JER 10:49
DX: J20.9 Acute bronchitis, unspecified (principal)
CPT/HCPCS: 71046-TC-FY; 99283-25

== ENCOUNTER 2021-12-19 04:11 | Day surgery (SDC) | payer OTHER ==
[2021-12-17 13:50] VITALS: BMI 33.7
[2021-12-19] MEDS ORDERED: PROPOFOL 20 ML ONE ×4 (08:31→10:15)
[2021-12-19] MEDS ORDERED: ONDANSETRON 4 MG/2 ML VIAL IVPUSH PRN (08:38)
[2021-12-19] MEDS ORDERED: oxyCODONE HCL 5 MG TABLET PO PRN (08:38)
[2021-12-19] MEDS ORDERED: LACTATED RINGERS SOLUTION 1,000 ML IV SCH (08:45)
[2021-12-19] MEDS ORDERED: MIDAZOLAM HCL 2 MG/2 ML SINGLE DOSE VIAL ONE (09:06)
[2021-12-19] MEDS ORDERED: SUCCINYLCHOLINE CHLORIDE 200 MG/10 ML SYRINGE ONE (09:09)
[2021-12-19] MEDS ORDERED: ceFAZolin SODIUM 1 GM VIAL IVPB ONE (09:40)
[2021-12-19] MEDS ORDERED: PHENYLEPHRINE HCL 10 MG/1 ML SINGLE DOSE VIAL ONE (10:00)
[2021-12-19] MEDS ORDERED: IOHEXOL 300 MG/ML INFUS..BTL IV ONE (10:43)
[2021-12-19] MEDS ORDERED: oxyCODONE HCL 5 MG TABLET ONE (12:31)
[2021-12-19] MEDS ORDERED: PHENAZOPYRIDINE HCL 100 MG TABLET (FP) PO ONE (13:35)
[2021-12-19] MEDS ORDERED: PHENAZOPYRIDINE HCL 100 MG TABLET (FP) ONE (13:37)
[2021-12-19 15:43] VITALS: BP 139/90; PULSE 80; RESP 20; TEMP 98.4
[2021-12-25 13:09] LABS: SIZE 3x2 mm (.); URIC ACID 100 % (.); WEIGHT 6 mg (.)
== END 2021-12-19 15:43 | disposition home or self-care (01) ==
LOC: JASU-SURG 04:11
PROVIDERS: ATTEND Urology
PROC: 0TC68ZZ Extirpation of Matter from Right Ureter, Via Natural or Artificial Opening Endoscopic (ICD-10-PCS; principal; 2021-12-19 09:00)
PROC: 0T768DZ Dilation of Right Ureter with Intraluminal Device, Via Natural or Artificial Opening Endoscopic (ICD-10-PCS; 2021-12-19 09:00)
PROC: BT1DYZZ Fluoroscopy of Right Kidney, Ureter and Bladder using Other Contrast (ICD-10-PCS; 2021-12-19 09:00)
DX: N13.2 Hydronephrosis with renal and ureteral calculous obstruction (principal)
CPT/HCPCS: 36415; 74420-TC-FY; 76000-TC-FY; 82360; 82962; 87086; 88108; 88300-TC; 94760; C1758; C2617

== ENCOUNTER 2022-06-07 10:16 | Emergency (ER) | payer OTHER ==
[2022-06-07 10:40] VITALS: TEMP 98; BMI 31.4
[2022-06-07] MEDS ORDERED: FAMOTIDINE 20 MG/50 ML IVPB 20 MG/50 ML MG IVPB ONE ×2 (11:00→11:05)
[2022-06-07] MEDS ORDERED: SODIUM CHLORIDE 0.9% 500 ML INFUS.BAG IV ONE (11:00)
[2022-06-07] MEDS ORDERED: MAG HYDROX/AL HYDROX/SIMETH 30 ML UNIT-DOSE CUP PO ONE (11:00)
[2022-06-07] MEDS ORDERED: ACETAMINOPHEN 1000 MG/100 ML BAG IVPB ONE (11:00)
[2022-06-07] MEDS ORDERED: ONDANSETRON 4 MG/2 ML VIAL IVPUSH ONE (11:03)
[2022-06-07] MEDS ORDERED: ACETAMINOPHEN INJECTION 100 ML IVPB ONE (11:04)
[2022-06-07] MEDS ORDERED: MAG HYDROX/AL HYDROX/SIMETH 30 ML UNIT-DOSE CUP ONE (11:05)
[2022-06-07] MEDS ORDERED: ONDANSETRON 4 MG/2 ML VIAL ONE (11:42)
[2022-06-07 12:10] LABS: BASO % 0.2 % (0-2.0); EOS % 1.6 % (0-4.5); HEMATOCRIT 47.5 % (35.4-49); HEMOGLOBIN 15.6 GM/dL (11.7-16.9); MCH 24.5 pg (25.7-33.7); MCHC 32.9 g/dl (32.0-35.9); MEAN CELL VOLUME 74.5 fl (80-96); MONO % 9.6 % (3.8-10.2); NEUT % 61.6 % (42.8-82.8); PLATELET COUNT 289 10^3/uL (134-434); RBC 6.38 M/mm3 (4.00-5.60); RDW 15.2 % (11.9-15.9); WHITE BLOOD COUNT 6.8 K/mm3 (4.0-10.0)
[2022-06-07 12:12] LABS: EPI CELLS 13 /uL (0-25.1); HYALINE CASTS 3 /uL (0-3.1); PH,URINE 5.5 (5.0-8.0); URINE APPEARANCE CLOUDY; URINE BACTERIA 12 /uL (0-1359); URINE BILIRUBIN NEGATIVE (NEGATIVE); URINE COLOR YELLOW; URINE GLUCOSE (UA) NEGATIVE (NEGATIVE); URINE KETONE TRACE (NEGATIVE); URINE LEUK ESTERASE NEGATIVE (NEGATIVE); URINE NITRITE NEGATIVE (NEGATIVE); URINE PROTEIN 1+ (NEGATIVE); URINE RBC 14 /uL (0-23.9); URINE UROBILINOGEN 0.2 mg/dL (0.2-1.0); URINE WBC 24 /uL (0-25.8)
[2022-06-07 12:32] LABS: CALCIUM 9.6 mg/dL (8.5-10.1)
[2022-06-07 12:33] LABS: ALBUMIN 3.7 g/dl (3.4-5.0); BLOOD UREA NITROGEN 13.1 mg/dL (7-18); MAGNESIUM 1.7 mg/dL (1.8-2.4)
[2022-06-07 12:36] LABS: PHOSPHOROUS 3.3 mg/dL (2.5-4.9)
[2022-06-07 12:37] LABS: BILIRUBIN,TOTAL 0.6 mg/dL (0.2-1); TOT PROT 7.8 g/dl (6.4-8.2)
[2022-06-07] MEDS ORDERED: POTASSIUM CHLORIDE TABS 20 MEQ TABLET.ER (FP) PO ONE ×2 (13:52→14:40)
[2022-06-07] MEDS ORDERED: MAGNESIUM SULF 50% (8.12 MEQ/2 ML-1 GM VIAL) IVPB ONE (13:52)
[2022-06-07] MEDS ORDERED: METOCLOPRAMIDE HCL INJECTION 10 MG/2 ML VIAL IVPUSH ONE (14:13)
[2022-06-07] MEDS ORDERED: METOCLOPRAMIDE HCL INJECTION 10 MG/2 ML VIAL ONE (14:40)
[2022-06-07] MEDS ORDERED: MAGNESIUM SULFATE IN WATER 2 GM/50 ML IVPB IVPB ONE (14:41)
[2022-06-07 17:46] VITALS: BP 131/82; PULSE 81; RESP 16
== END 2022-06-07 17:48 | disposition home or self-care (01) ==
LOC: JER 10:16
PROC: 3E033GC Introduction of Other Therapeutic Substance into Peripheral Vein, Percutaneous Approach (ICD-10-PCS; principal; 2022-06-07)
PROC: 3E033GC Introduction of Other Therapeutic Substance into Peripheral Vein, Percutaneous Approach (ICD-10-PCS; 2022-06-07)
PROC: 3E033GC Introduction of Other Therapeutic Substance into Peripheral Vein, Percutaneous Approach (ICD-10-PCS; 2022-06-07)
PROC: 3E033GC Introduction of Other Therapeutic Substance into Peripheral Vein, Percutaneous Approach (ICD-10-PCS; 2022-06-07)
PROC: 3E033GC Introduction of Other Therapeutic Substance into Peripheral Vein, Percutaneous Approach (ICD-10-PCS; 2022-06-07)
DX: R11.2 Nausea with vomiting, unspecified (principal); R19.7 Diarrhea, unspecified; R10.13 Epigastric pain; Z20.822 Contact with and (suspected) exposure to COVID-19
CPT/HCPCS: 0241U-QW; 36415; 71046-TC-FY; 80053; 81003; 83690; 83735; 84100; 84484; 85025; 87086; 93005; 93010; 96365; 96375; 99285-25

== ENCOUNTER 2022-06-16 04:20 | Day surgery (SDC) | payer OTHER ==
[2022-06-15 11:07] VITALS: BMI 33.3
[2022-06-16 10:50] VITALS: PULSE 85
[2022-06-16 11:06] VITALS: BP 150/80; RESP 19; TEMP 98
== END 2022-06-16 11:33 | disposition home or self-care (01) ==
LOC: JASU-ENDO 04:20
PROVIDERS: ATTEND Internal Medicine Gastroenterology
PROC: 0DB78ZX Excision of Stomach, Pylorus, Via Natural or Artificial Opening Endoscopic, Diagnostic (ICD-10-PCS; 2022-06-16)
PROC: 0DB48ZX Excision of Esophagogastric Junction, Via Natural or Artificial Opening Endoscopic, Diagnostic (ICD-10-PCS; 2022-06-16)
PROC: 0DB98ZX Excision of Duodenum, Via Natural or Artificial Opening Endoscopic, Diagnostic (ICD-10-PCS; principal; 2022-06-16 08:45)
DX: K21.00 Gastro-esophageal reflux disease with esophagitis, without bleeding (principal); K29.50 Unspecified chronic gastritis without bleeding
CPT/HCPCS: 82962; 88305-TC; 88342-TC

== ENCOUNTER 2022-12-21 11:39 | Emergency (ER) | payer OTHER ==
[2022-12-21 12:06] VITALS: BP 133/97; PULSE 98; RESP 18; TEMP 98; BMI 32.8
[2022-12-21] MEDS ORDERED: ONDANSETRON 4 MG/2 ML VIAL IVPUSH ONE (13:38)
[2022-12-21] MEDS ORDERED: KETOROLAC TROMETHAMINE 30 MG/1 ML VIAL IVPUSH ONE (13:38)
[2022-12-21] MEDS ORDERED: KETOROLAC TROMETHAMINE 30 MG/1 ML VIAL ONE (13:53)
[2022-12-21] MEDS ORDERED: ONDANSETRON 4 MG/2 ML VIAL ONE (13:53)
[2022-12-21 14:35] LABS: PH,URINE 5.5 (5.0-8.0); URINE APPEARANCE CLEAR; URINE BILIRUBIN NEGATIVE (NEGATIVE); URINE COLOR YELLOW; URINE GLUCOSE (UA) NEGATIVE (NEGATIVE); URINE KETONE NEGATIVE (NEGATIVE); URINE LEUK ESTERASE NEGATIVE (NEGATIVE); URINE NITRITE NEGATIVE (NEGATIVE); URINE PROTEIN NEGATIVE (NEGATIVE); URINE UROBILINOGEN 0.2 mg/dL (0.2-1.0)
[2022-12-21 14:42] LABS: BASO % 0.5 % (0-2.0); EOS % 1.5 % (0-4.5); HEMATOCRIT 52.7 % (35.4-49); HEMOGLOBIN 16.8 GM/dL (11.7-16.9); LYMPH % 32.9 % (8-40); MCH 24.5 pg (25.7-33.7); MEAN CELL VOLUME 76.5 fl (80-96); MEAN PLT VOLUME 8.8 fl (7.5-11.1); MONO % 7.8 % (3.8-10.2); NEUT % 57.3 % (42.8-82.8); PLATELET COUNT 279 10^3/uL (134-434); RBC 6.88 M/mm3 (4.00-5.60); RDW 14.7 % (11.9-15.9)
[2022-12-21 14:47] LABS: INR 0.95 (0.83-1.09)
[2022-12-21 14:50] LABS: ACTIVATED PTT 29.7 SECONDS (25.2-36.5)
[2022-12-21 14:55] LABS: POTASSIUM 3.5 mmol/L (3.5-5.1)
[2022-12-21 14:58] LABS: BLOOD UREA NITROGEN 14.5 mg/dL (7-18); CALCIUM 9.2 mg/dL (8.5-10.1); MAGNESIUM 1.6 mg/dL (1.8-2.4)
[2022-12-21 14:59] LABS: ALBUMIN 3.9 g/dl (3.4-5.0)
[2022-12-21 15:03] LABS: BILIRUBIN,TOTAL 0.4 mg/dL (0.2-1); TOT PROT 7.8 g/dl (6.4-8.2)
[2022-12-21] MEDS ORDERED: ACETAMINOPHEN 1000 MG/100 ML BAG IVPB ONE (15:46)
[2022-12-21] MEDS ORDERED: ACETAMINOPHEN INJECTION 100 ML IVPB ONE (15:59)
== END 2022-12-21 19:08 | disposition home or self-care (01) ==
LOC: JER 11:39
PROC: 3E033NZ Introduction of Analgesics, Hypnotics, Sedatives into Peripheral Vein, Percutaneous Approach (ICD-10-PCS; principal; 2022-12-21)
PROC: 3E0333Z Introduction of Anti-inflammatory into Peripheral Vein, Percutaneous Approach (ICD-10-PCS; 2022-12-21)
PROC: 3E033GC Introduction of Other Therapeutic Substance into Peripheral Vein, Percutaneous Approach (ICD-10-PCS; 2022-12-21)
DX: R10.9 Unspecified abdominal pain (principal); R51.9 Headache, unspecified; N50.819 Testicular pain, unspecified; R30.0 Dysuria; R11.0 Nausea; M54.9 Dorsalgia, unspecified; Z20.822 Contact with and (suspected) exposure to COVID-19
CPT/HCPCS: 0241U-QW; 36415; 70450-TC; 74176-TC; 76870-TC; 80053; 81003; 83735; 85025; 85610; 85730; 86850; 86900; 86901; 87086; 99285-25

== ENCOUNTER 2023-06-20 12:20 | Emergency (ER) | payer OTHER ==
[2023-06-20 12:29] VITALS: BMI 33.5
[2023-06-20] MEDS ORDERED: KETOROLAC TROMETHAMINE 30 MG/1 ML VIAL ONE (14:16)
[2023-06-20] MEDS: KETOROLAC TROMETHAMINE 30 MG/1 ML VIAL IM ONE (14:19)
[2023-06-20 16:30] VITALS: BP 134/91; PULSE 77; RESP 19; TEMP 98
== END 2023-06-20 16:48 | disposition home or self-care (01) ==
LOC: JER 12:20
PROC: 3E023GC Introduction of Other Therapeutic Substance into Muscle, Percutaneous Approach (ICD-10-PCS; principal; 2023-06-20)
DX: M54.50 Low back pain, unspecified (principal); M54.2 Cervicalgia; M25.562 Pain in left knee; V44.5XXA Car driver injured in collision with heavy transport vehicle or bus in traffic accident, initial encounter
CPT/HCPCS: 72040-TC; 72100-TC-FY; 73562-TC-LT-FY; 99284-25